=== PATIENT | male | born 1960 | race Caucasian/White ===

== ENCOUNTER 2016-04-06 08:33 | Day surgery (SDC) | payer OTHER, MEDICAID ==
[2016-04-06] MEDS ORDERED: LIDOCAINE 1% 5 ML SDV ID PRN (09:10)
[2016-04-06] MEDS ORDERED: LR 1,000 ML IV ONE (09:10)
--- NOTE | 2016-04-06 13:06 | GPN ---
[f rep st] PROCEDURE NOTE PREPROCEDURE DIAGNOSIS: Screening colonoscopy, prior colonoscopy with poor preparation. POSTPROCEDURE DIAGNOSIS: Again, poor preparation colonoscopy. PROCEDURE: Colonoscopy. MEDICATIONS: Monitored anesthesia care. INDICATIONS: The patient is a 55-year-old gentleman, who needs a screening colonoscopy. His prior s creening colonoscopy was inadequate secondary to poor preparation. He is here today for repeat colon oscopy. He initially stated he did not drink the prep however, later stated that he did. We agreed to proceed with colonoscopy. The risks and the benefits of the procedure were discussed with the pat ient, and consent was obtained. The risks include, but are not limited to, bleeding, perforation, mi ssed lesions, and sedation. The patient is ASA class 3. DESCRIPTION OF PROCEDURE: The adult colonoscope was advanced into the cecum. There was stool throug hout the colon prohibiting visualization. Approximately 50% of the colon was not able to be visualiz ed secondary to liquid and solid stool. There were no obvious colon masses. Polyps less than 2 cm i n size could have been missed. Retroflexed views in the rectum were normal. IMPRESSION: Colonoscopy to the cecum however, visualization was obscured secondary to stool. RECOMMENDATIONS: 1. Discharge home with escort. 2. Advance diet as tolerated. 3. The patient to discuss repeat colonoscopy with his primary care doctor however, this is his secon d colonoscopy with poor visualization. I would not schedule a repeat colonoscopy until he has this d iscussion. This exam again, does not count for a screening exam secondary to poor preparation. Thank you for allowing me to participate in the care of your patient. Please do not hesitate to call with questions. /[id number]/MODL
== END 2016-04-06 13:00 | disposition home or self-care (01) ==
LOC: FSGY 08:33
PROVIDERS: ATTEND Internal Medicine Gastroenterology
PROC: 0DJD8ZZ Inspection of Lower Intestinal Tract, Via Natural or Artificial Opening Endoscopic (ICD-10-PCS; principal; 2016-04-06 10:15)
DX: Z12.11 Encounter for screening for malignant neoplasm of colon (principal); I10 Essential (primary) hypertension; G89.4 Chronic pain syndrome; F32.9 Major depressive disorder, single episode, unspecified; G35 Multiple sclerosis

== ENCOUNTER → 2016-09-07 | Outpatient (CLI) | payer OTHER, MEDICAID ==
--- NOTE | 2016-09-07 11:06 | NOWCEV ---
[facility] OUTPATIENT REHABILITATION SERVICES WHEELCHAIR CLINIC EVALUATION AND LETTER OF JUSTIFICATION Patient Name: ADALBERTO FAY Physician: Maldonado Manning MD Eval Date: 09/07/16 Therapist: Angela Salazar PT,MSPT Date of : 1960 MR#: [id number] Contact: Adalberto Fay Subscriber: ADALBERTO FAY Primary Ins: MEDICARE OUTPATIENT Subscriber #: [id number] EVALUATION FINDINGS Medical history - Adalberto is a 55y/o male who was dx with multiple sclerosis (MS ) in 1995. Since that time he has had a progressive decline gait and function. He also reports a significant h/o LBP, B knee pain and R shoulder pain resulting from a fx earlier in life. He rates his pain as a 8-9/10 when standing or laying flat. Adalberto's current PWC is 12 years old and is no longer meeting his needs. He was referred to this wheelchair clinic by his doctor to have recommendations made for the most medically appropriate PWC to allow for consistent, safe, independent access to MRADLs within the home. Functional Mobility - Adalberto uses his current PWC independently for all household mobility. To transfer, Adalberto utilizes a stand step strategy, with significant UE support from his w/c arm rests. He has a crouched posture with significant knee flexion throughout the transition. To transition from sitting to supine, Adalberto requires increased time, and has pain which he rates as an 8-9/ 10 in his LB when he transitions to supine. He also requires increased time for supine to sit transitions due to pain in his back. He reports he is inconsistently able to walk short distances in his home, but is limited by fatigue from his MS, impaired balance as well as significant pain in his LB. When he does ambulate, he utilizes a crouched gait pattern with significant flexion at B knees, hips, and trunk and has a wide JAZLYN. He demonstrates poor clearance of his L foot, and spasticity in his L foot when it is on the ground. He requires CTG to occasional min A to maintain balance. This date he utilizes the wall rail to ambulate, but at home he report using a cane and holds onto stable surfaces around his home. He fatigued following walking a 15 ' distance in the clinic. He reports at home, he has days where it is difficult for him to stand, transfer or even weight shift in his PWC due to fatigue from his MS. Head/Trunk control - Adalberto is able to sit unsupported but demonstrates a posterior loss of balance with any challenges, and he has difficulty maintaining his feet on the floor. To maintain standing he requires a wide JAZLYN and flexed posture as well as UE support from a stable surface. He cannot take on any challenges in standing. Motor involvement - Adalberto's motor function is greatly impacted by his MS. He has increased flexor tone in B LEs which limits his ability to lay flat and to stand without significant flexion at B hips and knees. His spasticity increases with function and exertion, such as when transferring or attempting to ambulate, in turn limiting his ability to coordinate movement patterns. Passively he can get to -5 knee extension B, but this takes increased time to achieve. He has 0degress DF B. Shoulder flexion and abduction is limited to 100deg on the R and 90deg on the L. Pt reports strength and energy to perform functional tasks varies greatly depending on his level of fatigue and exacerbation of his MS symptoms. On this date, when Adalberto is not having an exacerbation, MMT is as follows: DF B: 4-/5, knee extension B: 4+/5, hip flexion B: 4/5, hip extension B: 3-/5, shoulder abduction B: 4/5, shoulder flexion: 4-/5. Posture - Adalberto sits with a significant posterior pelvic tilt and thoracic kyphosis. His sacrum is about 5" from his chair back. He has a severely forward head and he holds his head tilted to the R. His R shoulder is higher than his L, and he has a R thoracic convexity. B LEs are abducted, and he has difficulty maintaining his feet on his foot plate Skin Sensation - Adalberto has 2 active pressure ulcers in his coccygeal area, which is he currently seeing a wound care nurse to help manage. He does report intermittent episodes of incontinence. Adalberto also has pitting edema in his L ankle which he reports becomes worse as his feet remain in a dependent position. He has a wound on his L second toe, which he reports occurred when he was crawling in his home. Endurance - Adalberto has very limited endurance. He report that when his MS is flared, he is unable to consistently weight shift for pressure relief in his PWC due to fatigue. At these times, he is fully reliant on his PWC to access all areas of his home including the bathroom, kitchen and bedroom. When he is not experiencing and an exacerbation of symptoms, Adalberto report that he can stand for a few minutes with UE support, and ambulate short household distances with a cane. He reports that he has not been able to ambulate in the home for the past month or more due to fatigue and fear of falling. ADLs - Adalberto reports that he is able to perform toileting and shower with modified independence with use of a shower chair and adaptive strategies. He relies on a caregiver for meal prep and cleaning. Cognitive/Social - Adalberto lives alone in a wheelchair accessible home. 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 Adalberto has a caregiver that assists him with meal prep and paying bills 4 days a week. He uses [employer] transit to access medical appointments in the community in his PWC. Current wheelchair - Adalberto's current PWC is a [employer]inderBox 2HD and is 12 years old. He reports that the batteries no longer hold a charge, and this model is no longer being made, so they cannot be replaced. The seat cushion on the chair is ripped and with seat does not provide Adalberto with the postural support or pressure relief he needs, and is causing pressure ulcers. MEDICAL and FUNCTIONAL NEED/OBJECTIVES * To replace Adalberto's current PWC and seating system to allow for safe independent access to perform MRADLs in his home and to allow for appropriate pressure relief and postural support to allow for healing of his current pressure ulcers. PRIMARY FUNCTIONAL LIMITATION (G Code) * Mobility CURRENT STATUS OF PRIMARY FUNCTIONAL LIMITATION (Severity Modifier) * At least 60 percent but less than 80 percent impaired, limited or restricted ( CL) * GOAL STATUS OF PRIMARY FUNCTIONAL LIMITATION (Severity Modifier) * At least 60 percent but less than 80 percent impaired, limited or restricted ( CL) DISCHARGE STATUS OF PRIMARY FUNCTIONAL LIMITATION (Severity Modifier) * At least 60 percent but less than 80 percent impaired, limited or restricted ( CL) EQUIPMENT RECOMMENDATIONS AND JUSTIFICATIONS The following recommendations are believed to be the most cost effective way to meet the patients medical and functional needs. * Group 3 power base: Needed to replace Adalberto's current PWC which is 12 y/o, deteriorating and no longer meeting his needs. Adalberto cannot ambulate functionally, even with an AD to safely access MRADLs in his home. He cannot utilize even a light weight MWC due to the severe fatigue Adalberto experiences from his MS. Exerting himself to self propel a MWC could cause exacerbation of his MS symptoms and limit his access to MRADLs in the home. Adalberto cannot utilize a scooter, because it cannot accommodate the necessary seating system that Adalberto requires to allow for healing of his pressure ulcers. A scooter would not provide the postural support and control needed when Adalberto is experiencing MS fatigue. A custom PWC will provide Adalberto with safe and consistent access to MRADLs within his home, even when experiencing a fatigue or exacerbation of his MS symptoms. Adalberto is able to safely transfer to/from a PWC utilizing adaptive strategies. * Power [id number]: Needed to allow Adalberto to perform pressure relief at regular intervals throughout the day to allow for healing of his current pressure ulcers. This is necessary as Adalberto is unable to appropriately weight shift to perform pressure relief when he is fatigued from an MS exacerbation. Additionally, the [id number] will allow Adalberto to conserve energy throughout the day by taking breaks in a reclined position. This will allow for improved safety with transfers and performance of ADLs later in the day. * Swing away joystick: Needed so that the joystick can be moved out of the way so it does not interfere with transfers. Additionally, it will allow Adalberto to pull his chair more closely up to surfaces to complete functional tasks with greater independence when he is experiencing increased fatigue from his MS. * Head rest with removable mount: Needed to support Adalberto's head when he is utilizing the tilt function on his chair, as well as to help his conserve energy when experiencing an exacerbation of his MS. The removable mount is necessary so the head rest can be removed for assisted ADLs and self care tasks. * Height adjustable arm rests: The elevated height of the arm rest is needed to allow Adalberto to push up on to safely perform transfers. * Skin protection positioning cushion: Needed to provide Adalberto with appropriate pressure relief and distribution to allow for healing of his current coccygeal pressure ulcers. Additionally, a customs cushion will help position Adalberto's pelvis to prevent his from sliding forward in his chair which will decrease sheering forces and improve seated posture to allow for improved performance of ADLs from a w/c level. An off the shelf cushion is not appropriate as it will not provide Adalberto with adequate support to prevent him from sliding forward and will create increased sheering forces at his sacrum, which will prevent healing of current ulcers and not allow for skin health in the future. * Posterior positioning backrest: Needed to maximize Adalberto's posture in order to improve sitting tolerance and function. Additionally it will work in conjunction with Adalberto's seat cushion to enhance pressure distribution to promote wound healing and skin health. * Transit tie downs: Needed to secure Adalberto's chair when utilizing [employer] to attend medical appointments in the community. * Batteries: Needed to provide the chair with power to allow Adalberto to drive and utilize the electronic seat functions. These recommendations are based on the likelihood that ADALBERTO Irizarry will require the use of a wheelchair for mobility for the rest of his life. If you have any questions or concerns regarding the stated recommendations, please feel free to contact the therapist at . Thank you for your cooperation in obtaining the necessary equipment for this patient. MONALISA Johnson
== END ==
PROVIDERS: ATTEND Family Medicine
DX: Z46.89 Encounter for fitting and adjustment of other specified devices (principal); G35 Multiple sclerosis
CPT/HCPCS: 97162; G8978; G8979; G8980

== ENCOUNTER 2017-08-18 10:52 | Inpatient (IN) | payer OTHER, MEDICAID ==
--- NOTE | 2017-08-18 11:08 | EDPHY ---
H & P Time Seen by Provider: 08/18/17 11:07 HPI/ROS: CHIEF COMPLAINT: Fever and weakness HISTORY OF PRESENT ILLNESS: At least 48 hr of symptoms, has multiple sclerosis , arrives with fever chills and feeling terrible. Associated symptoms include cough but not short of breath, and decreased urination. No dysuria or discoloration or foul smell. No skin rashes. Symptoms severe and not better or worse with anything. REVIEW OF SYSTEMS: Eye: no change in vision ENT: no sore throat Cardiac: no chest pain or syncope Pulmonary: HPI Abdomen: no vomiting, diarrhea, abdominal pain Musculoskeletal: no back pain Skin: no rash Neuro: no headache Constitutional: HPI : no urinary symptoms A comprehensive 10 point review of systems is otherwise negative aside from elements mentioned in the history of present illness. PAST MEDICAL HISTORY: Multiple sclerosis, previous right shoulder surgery. Social history: Brought here with a friend, nonsmoker General Appearance: Alert and conversant, cooperative. Eyes: No scleral icterus. ENT, Mouth: Dry mucous membranes. Respiratory: Decreased breath sounds at the right base. O2 sat 79% in the room. Cardiovascular: Regular rate and rhythm. Gastrointestinal: Abdomen is soft and non tender. Neurological: Alert, face symmetric, normal motor and sensory in extremities. Skin: Warm and dry, no rashes. Specifically does not have evidence of cellulitis on his feet. Musculoskeletal: No peripheral edema. Psychiatric: Not agitated. Emergency Department course/MDM: Lactate screening, chest x-ray and urinalysis, blood cultures and IV fluids, admission for IV antibiotics. 1157: Bilateral infiltrates on long, with cough and hypoxemia and fever will treat for presumptive pneumonia with Levaquin 750 mg IV. Lactate is negative for severe sepsis. 1305; still unable to urinate, refuses catheter. Continued IV fluid hydration, will not delay antibiotics further. Levaquin 750 mg IV and inpatient. Smoking Status: Former smoker Constitutional: Initial Vital Signs Temperature (C) 38 C 08/18/17 10:55 Heart Rate 113 H 08/18/17 10:55 Respiratory Rate 16 08/18/17 10:55 Blood Pressure 133/84 H 08/18/17 10:55 O2 Sat (%) 94 08/18/17 10:55 O2 Delivery Mode Nasal Cannula O2 (L/minute) 3 Allergies/Adverse Reactions: No Known Allergies Allergy (Verified 03/09/16 13:52) Home Medications: Medication Instructions Recorded Albuterol [Proventil Inhaler HFA 1 puffs IH BID 08/18/17 (*)] Amitriptyline HCl [Elavil 10 mg 10 mg PO HS 08/18/17 (*)] Amoxicillin Trihydrate 500 mg PO Q8H PRN 08/18/17 [Amoxicillin] Cyclobenzaprine [Flexeril 10 MG 10 mg PO BID 08/18/17 (*)] Dalfampridine [Ampyra] 10 mg PO BID 08/18/17 Diazepam [Valium 10 MG (*)] 10 mg PO BID 08/18/17 Folic Acid [Folic Acid 1 MG (*)] 1 mg PO DAILY 08/18/17 Gabapentin [Neurontin 400 MG (*)] 800 mg PO TID 08/18/17 Hydrochlorothiazide [HCTZ (*)] 50 mg PO DAILY PRN 08/18/17 Ibuprofen [Motrin (*)] 400 mg PO Q4HRS PRN 08/18/17 Interferon Beta-1A [Avonex] 30 mcg IM WE 08/18/17 Linaclotide [Linzess] 145 mcg PO DAILY PRN 08/18/17 Metoprolol Tartrate [Lopressor 50 75 mg PO BID 08/18/17 mg (*)] OLANZapine [Zyprexa] 15 mg PO HS 08/18/17 Oxybutynin Chloride 5 mg PO HS 08/18/17 Pantoprazole Sodium [Protonix 40mg 40 mg PO DAILY 08/18/17 (*)] Polyethylene Glycol 3350 [Miralax 17 gm PO DAILY PRN 08/18/17 17 gm (*)] Tamsulosin HCl [Flomax 0.4 MG (*)] 0.4 mg PO HS 08/18/17 Testosterone IM [Testosterone 300 mg IM Q30D 08/18/17 100mg/ml IM inj (*)] ZOLPIDEM TARTRATE [Ambien CR 12.5 12.5 mg PO HS 08/18/17 mg] buPROPion XL [Wellbutrin Xl] 150 mg PO BID 08/18/17 busPIRone [Buspar (*)] 30 mg PO BID 08/18/17 oxyCODONE HCL [Oxycontin] 60 mg PO BID 08/18/17 tiZANidine HCL [Zanaflex] 4 mg PO TID PRN 08/18/17 Medical Decision Making - Diagnostics Imaging Results: Imaging Impressions Chest X-Ray 08/18/17 11:19 Impression: Mild diffuse bilateral pulmonary vascular prominence, without acute infiltrate or pleural effusion.. Imaging: I viewed and interpreted images myself Differential Diagnosis: Differential for fever considered including but not limited to pneumonia, UTI, sepsis, meningitis, ENT infection Consult/Admit Bed Type: [facility] - [facility] Points Laboratory Results: Laboratory Results 08/18/17 11:15 08/18/17 11:15 08/18/17 08/18/17 08/18/17 11:16 11:15 11:15 WBC RBC Hgb Hct MCV MCH MCHC RDW Plt Count MPV Neut % (Auto) Lymph % (Auto) [place] % (Auto) Eos % (Auto) Baso % (Auto) Nucleat RBC Rel Count Absolute Neuts (auto) Absolute Lymphs (auto) Absolute Monos (auto) Absolute Eos (auto) Absolute Basos (auto) Absolute Nucleated RBC Immature Gran % Immature Gran # PT 13.4 SEC SEC (12.0-15.0) INR 1.00 (0.83-1.16) APTT 30.6 SEC SEC (23.0-38.0) POC Blood Source VENOUS Patient Temperature 38.0 DEGREES DEGREES POC VBG pH 7.41 (7.31-7.42) POC VBG pCO2 51 mmHg H mmHg (40-44) POC VBG pO2 TNP POC VBG HCO3 32 mEq/L H mEq/L (22-26) POC VBG Total CO2 34 mEq/L H mEq/L (21-27) POC VBG Base Excess 8.0 mEq/L H mEq/L (-2.5-2.5) VBG Lactic Acid POC Mix VBG O2 Sat TNP Sodium 144 mEq/L mEq/L (135-145) Potassium 3.4 mEq/L mEq/L (3.3-5.0) Chloride 97 mEq/L mEq/L (97-110) Carbon Dioxide 33 mEq/l H mEq/l (22-31) Anion Gap 14 mEq/L mEq/L (8-16) BUN 28 mg/dL H mg/dL (7-23) Creatinine 1.6 mg/dL H mg/dL (0.7-1.3) Estimated GFR 45 Glucose 96 mg/dL mg/dL (70-100) POC Lactic Acid Nelson 1.3 mmol/L mmol/L (0.7-2.1) Calcium 10.4 mg/dL mg/dL (8.5-10.4) Total Bilirubin 0.6 mg/dL mg/dL (0.1-1.4) 08/18/17 08/18/17 11:15 11:15 WBC 10.17 10^3/uL H 10^3/uL (3.80-9.50) RBC 6.34 10^6/uL 10^6/uL (4.40-6.38) Hgb 14.3 g/dL g/dL (13.7-17.5) Hct 48.1 % % (40.0-51.0) MCV 75.9 fL L fL (81.5-99.8) MCH 22.6 pg L pg (27.9-34.1) MCHC 29.7 g/dL L g/dL (32.4-36.7) RDW 19.9 % H % (11.5-15.2) Plt Count 387 10^3/uL 10^3/uL (150-400) MPV 10.1 fL fL (8.7-11.7) Neut % (Auto) 71.9 % % (39.3-74.2) Lymph % (Auto) 13.8 % L % (15.0-45.0) [place] % (Auto) 10.6 % % (4.5-13.0) Eos % (Auto) 2.6 % % (0.6-7.6) Baso % (Auto) 0.6 % % (0.3-1.7) Nucleat RBC Rel Count 0.2 % % (0.0-0.2) Absolute Neuts (auto) 7.32 10^3/uL H 10^3/uL (1.70-6.50) Absolute Lymphs (auto) 1.40 10^3/uL 10^3/uL (1.00-3.00) Absolute Monos (auto) 1.08 10^3/uL H 10^3/uL (0.30-0.80) Absolute Eos (auto) 0.26 10^3/uL 10^3/uL (0.03-0.40) Absolute Basos (auto) 0.06 10^3/uL 10^3/uL (0.02-0.10) Absolute Nucleated RBC 0.02 10^3/uL H 10^3/uL (0-0.01) Immature Gran % 0.5 % % (0.0-1.1) Immature Gran # 0.05 10^3/uL 10^3/uL (0.00-0.10) PT INR APTT POC Blood Source Patient Temperature POC VBG pH POC VBG pCO2 POC VBG pO2 POC VBG HCO3 POC VBG Total CO2 POC VBG Base Excess VBG Lactic Acid 1.6 mmol/L mmol/L (0.7-2.1) POC Mix VBG O2 Sat Sodium Potassium Chloride Carbon Dioxide Anion Gap BUN Creatinine Estimated GFR Glucose POC Lactic Acid Nelson Calcium Total Bilirubin Microbiology Results: MICROBIOLOGY 08/18/17 11:58 Nasal, Sinus - Swab Respiratory Panel (PCR) - Final No Organism Detected Medications Given: Discontinued Medications Sodium Chloride (Ns) 1,000 mls @ 0 mls/hr IV EDNOW ONE; Wide Open PRN Reason: Protocol Stop: 08/18/17 11:20 Last Admin: 08/18/17 11:20 Dose: 1,000 mls Sodium Chloride (Ns) 1,000 mls @ 0 mls/hr IV EDNOW ONE; Wide Open PRN Reason: Protocol Stop: 08/18/17 11:57 Last Admin: 08/18/17 13:00 Dose: 1,000 mls Levofloxacin/Dextrose (Levaquin 750 Mg (Premix)) 150 mls @ 100 mls/hr IV EDNOW ONE PRN Reason: Protocol Stop: 08/18/17 13:25 Last Admin: 08/18/17 13:07 Dose: 150 mls Point of Care Test Results: Blood Gas/Lactic Acid-Arterial 08/18/17 11:16 POC Blood Source VENOUS Blood Gas/Lactic Acid-Venous 08/18/17 11:16 POC VBG pH 7.41 (7.31-7.42) POC VBG pCO2 51 mmHg H mmHg (40-44) POC VBG pO2 TNP POC VBG HCO3 32 mEq/L H mEq/L (22-26) POC VBG Total CO2 34 mEq/L H mEq/L (21-27) POC VBG Base Excess 8.0 mEq/L H mEq/L (-2.5-2.5) POC Mix VBG O2 Sat TNP POC Lactic Acid Nelson 1.3 mmol/L mmol/L (0.7-2.1) Departure - Departure Disposition: [facility] Inpatient Acute Clinical Impression: Sepsis Qualifiers: Sepsis type: sepsis due to unspecified organism Qualified Code(s): A41.9 - Sepsis, unspecified organism Pneumonia Qualifiers: Pneumonia type: due to unspecified organism Laterality: bilateral Lung location : unspecified part of lung Qualified Code(s): J18.9 - Pneumonia, unspecified organism Condition: Fair
[2017-08-18] MEDS ORDERED: NS 1,000 ML IV ONE ×2 (11:19→11:56)
[2017-08-18 11:34] LABS: PLATELET COUNT 387 10^3/uL (150-400)
[2017-08-18 11:52] LABS: PROTIME(PATIENT) 13.4 SEC (12.0-15.0)
[2017-08-18] MEDS ORDERED: POLYETHYLENE GLYCOL 3350 17 GM PKT PO PRN (17:16)
[2017-08-18] MEDS ORDERED: PROMETHAZINE HCL 25 MG/ML INJ IVP PRN (17:21)
[2017-08-18] MEDS ORDERED: ONDANSETRON 4 MG/2 ML VIAL IVP PRN (17:21)
[2017-08-18] MEDS ORDERED: NS 1,000 ML IV SCH (17:30)
--- NOTE | 2017-08-18 18:11 | GHP ---
[f rep st] HISTORY AND PHYSICAL DATE OF ADMISSION: 08/18/2017 CHIEF COMPLAINT: Fever. HISTORY OF PRESENT ILLNESS: The patient is a 56-year-old male, who was sent to the emergency room by his nurse when she found a fever of 102. Blood pressure was also read by her to be low. The patien t has minimal symptoms. He denies any cough. He denies any chest pain. Denies any shortness of amilcar ath. Has noticed increased lower extremity swelling for the last 2 weeks which he has never had in t he past. He does state multiple members of his close family, however, have all recently suffered fro m a similar pneumonia. PAST MEDICAL HISTORY: 1. Multiple sclerosis. 2. Hypertension. 3. Chronic pain with continuous narcotic dependency. 4. Bipolar disorder. 5. Obesity, BMI 33. MEDICATIONS: Please see computer record for full detailed list. ALLERGIES: No known drug allergies. SOCIAL HISTORY: He was a heavy smoker in the past but quit a few years ago. Also a heavy drinker of alcohol in the past, but he has also quit that. He uses a walker. He lives alone. REVIEW OF SYSTEMS: Complete review of systems obtained. Review of systems negative for constitution al, HEENT, GI, pulmonary, vascular, , hematologic, endocrine, psych except for positives as in HPI. FAMILY HISTORY: Reviewed and noncontributory to presenting complaint. PHYSICAL EXAMINATION: GENERAL: Well-developed, well-nourished male, in no acute distress. VITAL SIG NS: Temperature is 38.0, pulse 113, blood pressure 121/73, sat 90% on 3 L. EYES: Normal conjunctiva . Pupils react to light. ENT: Normal ears, nose. Hearing intact. Normal mouth and teeth. Oropha rynx moist. NECK: Trachea midline. No thyromegaly. CHEST: Normal except for lungs, some faint bi lateral rales. No wheeze or rhonchi. CARDIOVASCULAR: Regular rate and rhythm. No murmur. 2+ lowe r extremity edema. ABDOMEN: Soft, nontender. No hepatosplenomegaly. SKIN: Warm, dry, intact with out rash. MUSCULOSKELETAL: No cyanosis or clubbing. Strength is decreased throughout. He had trou ble sitting, from a lying position to sitting at the side of the bed. It took him quite a while and required assistance. NEURO: Cranial nerves grossly intact. PSYCH: Alert and oriented x3. Normal affect. Normal judgment and insight. Normal memory. He does have slurred speech which I think is b aseline from his MS. LABORATORY VALUES: White count 10.17, hematocrit 48.1, platelets 387. Sodium 144, potassium 3.4, ch loride 97, bicarb 33, BUN 28, creatinine 1.6, glucose 96, lactate 1.3. Urinalysis is negative. Chest x-ray reviewed by me. My personal interpretation is bilateral infiltrates. MEDICAL RECORDS REVIEW: Previous medical records were reviewed. He has had minimal previous hospita lizations here, was last hospitalized here 2010. That admission was due to UTI. ASSESSMENT/PLAN: 1. Suspected pneumonia with sepsis as he does present with fever, leukocytosis, and tachycardia. Al so in the differential is congestive heart failure based on bilateral infiltrates on chest x-ray and pulmonary embolus, given history of immobility and new onset lower extremity edema. For now, will pr oceed with antibiotics and continue intravenous Levaquin as started in the emergency room. Will chec k a respiratory PCR. 2. Lower extremity edema. This has been new for the last 2 weeks. Will check ultrasound to rule ou t deep vein thrombosis and an echocardiogram. 3. Acute renal failure secondary to dehydration. Will hold his hydrochlorothiazide and check a blad horacio scan for retention. 4. Multiple sclerosis. This is quite debilitating and he seems compromised at baseline. Will order Physical Therapy and Occupational Therapy. Will consult Speech Therapy to rule out aspiration pneum onia. Continue Ampyra. 5. Chronic pain with continuous narcotic dependency. Continue OxyContin. 6. Bipolar. Continue Zyprexa. CODE STATUS: Full. ADMISSION STATUS: Will start with observation, although I think he is high risk for needing a longer stay. DVT PROPHYLAXIS: He is high risk. Will place him on subcu Lovenox. /[id number]/MODL
[2017-08-18] MEDS: NS 1,000 ML IV SCH (19:00)
[2017-08-18] MEDS ORDERED: DIAZEPAM 10 MG TAB PO SCH (21:00)
[2017-08-18] MEDS: ALBUTEROL 60 PUFFS/8 GM MDI IH SCH (21:37)
[2017-08-18] MEDS: buPROPion XL 150 MG TAB PO SCH (22:08)
[2017-08-18] MEDS: GABAPENTIN 400 MG CAP PO SCH (22:08)
[2017-08-18] MEDS: METOPROLOL TARTRATE 50 MG TAB PO SCH (22:08)
[2017-08-18] MEDS: oxyCODONE CR 30 MG TAB PO SCH (22:11)
[2017-08-18] MEDS: ZOLPIDEM TARTRATE 5 MG TAB PO SCH (22:11)
[2017-08-18] MEDS: TAMSULOSIN HCL 0.4 MG CAP PO SCH (22:11)
[2017-08-18] MEDS: busPIRone 15 MG TAB PO SCH (22:12)
[2017-08-18] MEDS: DIAZEPAM 5 MG TAB PO SCH (22:12)
[2017-08-18] MEDS: CYCLOBENZAPRINE 10 MG TAB PO SCH (22:12)
[2017-08-18] MEDS: OLANZapine 5 MG TAB PO SCH (22:12)
[2017-08-18] MEDS: AMITRIPTYLINE HCL 10 MG TAB PO SCH (22:13)
[2017-08-18] MEDS: OXYBUTYNIN CHLORIDE 5 MG TAB PO SCH (22:13)
[2017-08-18] MEDS: NON-FORMULARY NEW DRUG (Dalfampridine [Ampyra] 10 MG) PO SCH (22:57)
[2017-08-19] MEDS: NS 1,000 ML IV SCH (01:01)
[2017-08-19 05:41] LABS: PLATELET COUNT 299 10^3/uL (150-400)
[2017-08-19] MEDS: ALBUTEROL 60 PUFFS/8 GM MDI IH SCH ×2 (08:30→20:41)
--- NOTE | 2017-08-19 08:48 | CPEKG ---
Heart Rate: 72 RR Interval: 833 P-R Interval: 208 QRSD Interval: 84 QT Interval: 380 QTC Interval: 416 P [place]: 43 QRS [place]: 18 T Wave [place]: 21 EKG Severity - NORMAL ECG - EKG Impression: SINUS RHYTHM Electronically Signed By: Finesse Jose 22-Aug-2017 02:37:05
[2017-08-19] MEDS: oxyCODONE CR 30 MG TAB PO SCH ×2 (09:35→20:52)
[2017-08-19] MEDS ORDERED: FUROSEMIDE 40 MG/4 ML VIAL IVP ONE (09:41)
--- NOTE | 2017-08-19 09:49 | ASMTCMCOM ---
CM Note CM Note Notes: Chart reviewed for discharge planning purposes. 56 year old male admitted via ED for c/o weakness and swelling in lower extremities. He is follow by YUMIKO Burton who in fact left a message for CM to call [phone]. I have left a message for them to call me. He reported lives alone and uses a walker. PT and OT evaluations pending. CM to follow. Plan: TBD Date Signed: 08/19/2017 09:48 AM Electronically Signed By:Julisa Magallanes RN
[2017-08-19] MEDS: levOFLOXACIN 500 MG/DEXTROSE 100 ML IV SCH (09:58)
[2017-08-19] MEDS ORDERED: NALOXONE HCL 0.4 MG/ML INJ ONE (10:07)
[2017-08-19] MEDS ORDERED: NALOXONE HCL 0.4 MG/ML INJ IVP ONE (10:10)
--- NOTE | 2017-08-19 10:13 | ASMTCMCOM ---
CM Note CM Note Notes: Spoke with Rut Chapman who reveals the patient has wounds on his knees due to his severity of his MS and that he is crawling on the floors of his home as his access to rooms via wheelchair is limited by the width of the doorways. He currently has [facility] and has a caregiver provided 3 times weekly for 3 hours at a time for errands, cleaning and shopping, He has had a change in status and is being transferred to a higher level of care within the hospital. CM will follow to ascertain his needs and assist with dc planning. Plan: TBD Date Signed: 08/19/2017 10:12 AM Electronically Signed By:Julisa Magallanes RN
--- NOTE | 2017-08-19 10:14 | ECHO ---
[email or web address] [address] [address] Main: [phone] Fax: Transthoracic Echocardiogram Name: ADALBERTO FAY MR#: [id number] Study Date: 08/19/2017 Study Time: 07:49 AM Date of : 1960 Age: 56 year(s) Height: 188 cm (74 in.) Weight: 117.94 kg (260 lb.) BSA: 2.43 m2 Gender: Male Examination: Echo Indication: New LE Edema Image Quality: Adequate Contrast: Requested by: Jacqueline Salinas BP: 99 mmHg/61 mmHg Heart Rate: Rhythm: Indication: New LE Edema Procedure Staff Mobile Application Developer: Kina Marrero [facility] Reading Physician: Jose C Crow MD Requesting Provider: Conclusions: Normal size left ventricle. No LV hypertrophy. Normal global systolic LV function. The ejection fraction is visually estimated to be 55 %. No regional wall motion abnormality. Normal RV function. The mitral valve is normal in appearance and function. Mild mitral valve regurgitation is present. No mitral stenosis is present. There is no significant aortic valve regurgitation. No aortic valve stenosis is present. The pulmonary artery pressure is normal. No previous Measurements: Chambers Valvular Assessment AV/MV Valvular Assessment TV/PV Normal Normal Normal Name Value Range Name Value Range Name Value Range Ao Polina (2D): 3.5 cm (1.4 cm-2.6 AV Vmax: 1.60 m/s (1 m/s-1.7 TR Vmax: 2.35 mm/s ( - ) cm) m/s) TR PGmax: 22 mmHg ( - ) IVSd (2D): 1.1 cm (0.6 cm-1.1 AV maxP mmHg ( - ) syst. PAP: 27 mmHg ( - ) cm) AV meanP mmHg ( - ) PV Vmax: 0.92 m/s (0.6 m/s-0.9 LVDd (2D): 4.6 cm (4.2 cm-5.9 ALYCIA (VTI): 3.3 cm ( - ) m/s) cm) MV E Vmax: 0.76 m/s ( - ) PV PGmax: 3 mmHg ( - ) LVDs (2D): 3.0 cm (2.1 cm-4 MV A Vmax: 0.63 m/s ( - ) cm) MV E/A: 1.21 ( - ) LVPWd (2D): 1.0 cm (0.6 cm-1 cm) MV PHT: 0.082 s ( - ) LVOTd 2.5 cm 2.5 cm mm MVA (PHT): 2.7 s ( - ) LVEF (BP): 57 % (>=55 %) Patient: ADALBERTO FAY Study Date: 08/19/2017 Page 1 of 2 07:49 AM Visual EF: 55 % RVDd(2D): 3.7 cm (1.9 cm-3.8 cmmm) Continued Measurements: Chambers Valvular Assessment AV/MV Valvular Assessment TV/PV Name Value Name Value Name Value LADs: 4.1 cm MV DecTime: 296 m/s CVP (est.): 5 mmHg LADs Lon.4 cm MV E' Septal: 0.08 m/s LA Area: 19.0 cm2 MV E/E' Septal: 9.20 LA Volume: 62 ml MV E/E' Lateral: 5.80 LA Volume Index: 25.5 ml/m2 RA Area: 18.6 cm2 Findings: Left Ventricle: Normal size left ventricle. No LV hypertrophy. Normal global systolic LV function. The ejection fraction is visually estimated to be 55 %. No regional wall motion abnormality. Normal diastolic LV function. Right Ventricle: Normal size right ventricle. Normal RV function. Left Atrium: The left atrium is normal in size. Right Atrium: The right atrium is normal in size. Mitral Valve: The mitral valve is normal in appearance and function. Mild mitral valve regurgitation is present. No mitral stenosis is present. Aortic Valve: The aortic valve is normal in appearance and function. There is no significant aortic valve regurgitation. No aortic valve stenosis is present. Tricuspid Valve: The tricuspid valve is normal in appearance and function. Mild tricuspid regurgitation is present. The pulmonary artery pressure is normal. Right ventricular systolic pressure measures 27mmHg. Pulmonic Valve: The pulmonic valve is normal in appearance and function. There is no pulmonic regurgitation seen. Aorta: The aorta is normal. Normal size aortic root measuring 3.5 cm. Pericardium: No pericardial effusion. No pleural effusion. (No Signature Object) Patient: ADALBERTO FAY Study Date: 08/19/2017 Page 2 of 2 07:49 AM [id number]
[2017-08-19] MEDS ORDERED: IOPAMIDOL (ISOVUE 370) 100 ML BTL IV ONE ×2 (11:46→12:50)
[2017-08-19] MEDS: METOPROLOL TARTRATE 50 MG TAB PO SCH ×2 (13:18→20:50)
[2017-08-19] MEDS: PANTOPRAZOLE SODIUM 40 MG TAB PO SCH (13:18)
[2017-08-19] MEDS: ENOXAPARIN 40 MG/0.4 ML SYR SC SCH (13:20)
[2017-08-19] MEDS: CYCLOBENZAPRINE 10 MG TAB PO SCH ×2 (13:20→20:50)
[2017-08-19] MEDS: DIAZEPAM 5 MG TAB PO SCH ×2 (13:21→20:50)
[2017-08-19] MEDS: GABAPENTIN 400 MG CAP PO SCH ×3 (13:25→20:52)
[2017-08-19] MEDS: buPROPion XL 150 MG TAB PO SCH ×2 (13:27→20:52)
[2017-08-19] MEDS: ACETAMINOPHEN 325 MG TAB PO PRN ×2 (13:27→23:13)
[2017-08-19] MEDS: FOLIC ACID 1 MG TAB PO SCH (13:27)
[2017-08-19] MEDS: NON-FORMULARY NEW DRUG (Dalfampridine [Ampyra] 10 MG) PO SCH ×2 (13:29→19:26)
[2017-08-19] MEDS: busPIRone 15 MG TAB PO SCH ×2 (13:29→20:49)
--- NOTE | 2017-08-19 15:27 | WOCRNPDOC ---
WOCRN Advanced Assessment Note - Skin Integrity Problem, Advanced Assess Left Posterior Medial Leg Unknown Dressing Type: Open to Air Exudate Amount: None Integumentary Issue Intervention: Mechanical Debridement Wound Bed Color: Yellow Wound Bed Constitution: Granulation Tissue (15%), Tunneling (at 11 oclock 0.5 cm ), Adhered Slough (85%) Wound Edges: Attached Site Measurement - Head-to-Toe Length X Width X Depth (cm): 1X2.5X0.5 Pressure Injury Stage: Stage 3, Legislators Related Pressure Injury (per patient report from [facility]) Pressure Injury Present on Admit: Yes Skin Integrity Problem Comment: Patient had little or no pain during the assessment and mechanical debridement. Loose slough mechanically debrided. Full thickness wound that per patient report is from coban being wrapped too tightly a couple of weeks ago. Will initiate enzymatic debridement and round again next week. Maria Ines AVELAR in room for care. [facility].
--- NOTE | 2017-08-19 15:51 | HOSPPROG ---
Hospitalist Progress Note Assessment/Plan: * Acute respiratory failure - acutely worsening O2 sats this am - transferred to step down * Pneumonia, probable aspiration - with sepsis -IV levaquin, add clindamycin * Continuous narcotic dependency -s/p Narcan - only mild improvement -continue home meds - hold if mental status poor * Advanced MS -Ampyra * Dysphagia -NPO per speech * ARF - resolved with IVF * Bipolar -zyprexa CC time - 50 minutes Subjective: Acutely worse sats this am - went from 4L to NRB - STAT team called. Mental status poor, got IV narcan with minimal response. Objective: Vital Signs Temp Pulse Resp BP Pulse Ox 37.3 C 86 15 109/75 93 08/19/17 15:07 08/19/17 15:07 08/19/17 15:07 08/19/17 15:07 08/19/17 15:07 08/18/17 08/19/17 08/20/17 05:59 05:59 05:59 Output Total 300 Balance -300 PT 13.4 SEC (12.0-15.0) 08/18/17 11:15 INR 1.00 (0.83-1.16) 08/18/17 11:15 CTA chest - PNA, no PE ECHO - normal CXR viewed, my personal interpretation is - possible pulmonary edema EKG viewed - NSR ABG - no CO2 retention Laboratory Tests 08/19/17 08/19/17 04:39 04:39 WBC 5.46 Creatinine 1.0 - Physical Exam Constitutional: no apparent distress, appears nourished, not in pain Cardiovascular: regular rate and rhythym, no murmur, rub, or gallop Respiratory: no respiratory distress, no rales or rhonchi, clear to auscultation Gastrointestinal: normoactive bowel sounds, soft, non-tender abdomen, no palpable masses Skin: no rashes or abrasions, no fluctuance, no induration Neurologic: weakness, No AAOx3 Psychiatric: encephalopathic, agitated, poor insight, poor judgement, poor memory, No interacting appropriately ICD10 Worksheet Patient Problems: Problems Problem Status Onset Pneumonia Acute Sepsis Acute
[2017-08-19] MEDS: COLLAGENASE 30 GM OINTMENT TP SCH (16:17)
[2017-08-19] MEDS: 1/2 NS 1,000 ML IV SCH (16:20)
[2017-08-19] MEDS: TAMSULOSIN HCL 0.4 MG CAP PO SCH (20:49)
[2017-08-19] MEDS: OLANZapine 5 MG TAB PO SCH (20:49)
[2017-08-19] MEDS: AMITRIPTYLINE HCL 10 MG TAB PO SCH (20:50)
[2017-08-19] MEDS: OXYBUTYNIN CHLORIDE 5 MG TAB PO SCH (20:50)
[2017-08-19] MEDS: ZOLPIDEM TARTRATE 5 MG TAB PO SCH (20:53)
[2017-08-19] MEDS: CLINDAMYCIN 600 MG/DEXTROSE 50 ML IV SCH (21:00)
[2017-08-20] MEDS: ACETAMINOPHEN 325 MG TAB PO PRN ×2 (04:08→18:14)
[2017-08-20] MEDS ORDERED: LIDOCAINE 2% JELLY 20 ML (UROJECT) ONE (05:11)
[2017-08-20] MEDS ORDERED: LIDOCAINE 2% JELLY 20 ML (UROJECT) UR ONE ×3 (05:30→14:45)
[2017-08-20] MEDS: CLINDAMYCIN 600 MG/DEXTROSE 50 ML IV SCH ×3 (06:13→21:59)
[2017-08-20] MEDS: 1/2 NS 1,000 ML IV SCH ×2 (06:13→14:46)
[2017-08-20] MEDS: ALBUTEROL 60 PUFFS/8 GM MDI IH SCH ×3 (08:37→21:25)
[2017-08-20] MEDS: FOLIC ACID 1 MG TAB PO SCH (09:45)
[2017-08-20] MEDS: GABAPENTIN 400 MG CAP PO SCH ×3 (09:45→20:50)
[2017-08-20] MEDS: METOPROLOL TARTRATE 50 MG TAB PO SCH ×2 (09:45→20:51)
[2017-08-20] MEDS: DIAZEPAM 5 MG TAB PO SCH ×2 (09:45→20:53)
[2017-08-20] MEDS: busPIRone 15 MG TAB PO SCH ×2 (09:45→20:52)
[2017-08-20] MEDS: oxyCODONE CR 30 MG TAB PO SCH ×3 (09:46→20:52)
[2017-08-20] MEDS: CYCLOBENZAPRINE 10 MG TAB PO SCH ×2 (09:46→20:52)
[2017-08-20] MEDS: PANTOPRAZOLE SODIUM 40 MG TAB PO SCH (09:46)
[2017-08-20] MEDS: ENOXAPARIN 40 MG/0.4 ML SYR SC SCH (09:46)
[2017-08-20] MEDS: buPROPion XL 150 MG TAB PO SCH ×2 (09:59→20:51)
[2017-08-20] MEDS: levOFLOXACIN 500 MG/DEXTROSE 100 ML IV SCH (09:59)
[2017-08-20] MEDS: COLLAGENASE 30 GM OINTMENT TP SCH (10:00)
[2017-08-20] MEDS: NON-FORMULARY NEW DRUG (Dalfampridine [Ampyra] 10 MG) PO SCH (10:34)
--- NOTE | 2017-08-20 13:40 | HOSPPROG ---
Hospitalist Progress Note Assessment/Plan: #Acute hypoxic resp failure: due to aspiration PNA -cont broad abx -no PE on CTA #Concern for CVA: per patient/family, speech slurred. 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 Speech better with dentures. Passed speech eval #MS: cont home meds #Chronic pain and opioid dependency #Dysphagia: cleared by speech #Sepsis: resolved. Due to PNA #Bipoloar d/o: zyprexa #Urinary retention: multifactorial with MS, opioids. Straight cath #Right buttock pressure injury: present at admit. Wound care #Diet: regular #DVT ppx: lovenox #Disp: stable for med floor. Cont inpt admission for IV abx, nebs Subjective: " i want to go home". Denies fevers Objective: Vital Signs Temp Pulse Resp BP Pulse Ox 36.6 C 83 15 100/58 L 92 08/20/17 07:54 08/20/17 09:45 08/20/17 08:38 08/20/17 09:45 08/20/17 08:38 08/19/17 08/20/17 08/21/17 05:59 05:59 05:59 Intake Total 1408 Output Total 2900 Balance -1492 PT 13.4 SEC (12.0-15.0) 08/18/17 11:15 INR 1.00 (0.83-1.16) 08/18/17 11:15 - Time Spent With Patient Time Spent with Patient: greater than 35 minutes Time Spent with Patient: Greater than 35 minutes spent on this patients care, greater than 50% of time spent counseling, educating, and coordinating care regarding the above mentioned plan. - Physical Exam Constitutional: no apparent distress Eyes: PERRL Ears, Nose, Mouth, Throat: moist mucous membranes Cardiovascular: regular rate and rhythym Respiratory: rhonchi Gastrointestinal: normoactive bowel sounds Genitourinary: no bladder fullness Skin: warm Musculoskeletal: generalized weakness Neurologic: AAOx3, CN II-XII Intact Psychiatric: flat affect ICD10 Worksheet Patient Problems: Problems Problem Status Onset Sepsis Acute Pneumonia Acute
--- NOTE | 2017-08-20 15:56 | PDMN ---
Medical Necessity Medical necessity: change to IP; los>2mn for acute resp failure, w/acutely worsening O2 sats with O2 needs increasing from 4L to NRB, PNA w/sepsis, likely aspiration, dysphagia; requires STAT team, transfer to ICU/SDU, continued IV abx, NPO; comorbid MS, bipolar; per order and progress note 08/19/17
[2017-08-20] MEDS ORDERED: LIDOCAINE 2% JELLY 20 ML (UROJECT) UR PRN (16:07)
[2017-08-20] MEDS: OXYBUTYNIN CHLORIDE 5 MG TAB PO SCH (20:51)
[2017-08-20] MEDS: TAMSULOSIN HCL 0.4 MG CAP PO SCH (20:52)
[2017-08-20] MEDS ORDERED: Dalfampridine [Ampyra] 10 MG PO SCH (21:00)
[2017-08-20] MEDS: OLANZapine 5 MG TAB PO SCH (21:59)
[2017-08-20] MEDS: AMITRIPTYLINE HCL 10 MG TAB PO SCH (21:59)
[2017-08-20] MEDS: ZOLPIDEM TARTRATE 5 MG TAB PO SCH (22:02)
[2017-08-21] MEDS: oxyCODONE CR 30 MG TAB PO SCH ×4 (05:37→21:20)
[2017-08-21] MEDS: CLINDAMYCIN 600 MG/DEXTROSE 50 ML IV SCH ×3 (05:37→21:17)
[2017-08-21] MEDS: 1/2 NS 1,000 ML IV SCH (05:38)
[2017-08-21] MEDS: GABAPENTIN 400 MG CAP PO SCH ×3 (08:50→21:21)
[2017-08-21] MEDS: DIAZEPAM 5 MG TAB PO SCH ×2 (08:51→21:20)
[2017-08-21] MEDS: buPROPion XL 150 MG TAB PO SCH ×2 (08:52→21:21)
[2017-08-21] MEDS: CYCLOBENZAPRINE 10 MG TAB PO SCH ×2 (08:52→21:21)
[2017-08-21] MEDS: METOPROLOL TARTRATE 50 MG TAB PO SCH ×2 (08:52→21:20)
[2017-08-21] MEDS: busPIRone 15 MG TAB PO SCH ×2 (08:54→21:21)
[2017-08-21] MEDS: FOLIC ACID 1 MG TAB PO SCH (08:55)
[2017-08-21] MEDS: ENOXAPARIN 40 MG/0.4 ML SYR SC SCH (08:57)
[2017-08-21] MEDS: PANTOPRAZOLE SODIUM 40 MG TAB PO SCH (08:57)
[2017-08-21] MEDS: COLLAGENASE 30 GM OINTMENT TP SCH (11:52)
--- NOTE | 2017-08-21 13:05 | HOSPPROG ---
Hospitalist Progress Note Assessment/Plan: #Acute hypoxic resp failure: due to aspiration PNA -change to Augmentin -no PE on CTA #Urinary retention: on several offending meds: TCA, oxybutynin, Flexeril. Declines straight cath; wants feliz. Explained the risk for infection and he acknowledged these #Concern for CVA: per patient/family, speech slurred. 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 Speech better with dentures. Passed speech eval #MS: cont home meds #Suspected COPD exacerbation: significant tobacco hx. Add prednisone today #Chronic pain and opioid dependency #Dysphagia: cleared by speech #Sepsis: resolved. Due to PNA #Bipoloar d/o: zyprexa #Right buttock pressure injury: present at admit. Wound care #Diet: regular #DVT ppx: lovenox #Disp: stable for med floor. Cont inpt admission for abx, nebs Subjective: coughing up green sputum Objective: Vital Signs Temp Pulse Resp BP Pulse Ox 36.4 C 80 16 138/83 H 99 08/21/17 08:00 08/21/17 08:00 08/21/17 08:00 08/21/17 08:00 08/21/17 08:00 08/20/17 08/21/17 08/22/17 05:59 05:59 05:59 Intake Total 1408 1130 Output Total 2900 3600 Balance -1492 -2470 PT 13.4 SEC (12.0-15.0) 08/18/17 11:15 INR 1.00 (0.83-1.16) 08/18/17 11:15 - Time Spent With Patient Time Spent with Patient: greater than 35 minutes Time Spent with Patient: Greater than 35 minutes spent on this patients care, greater than 50% of time spent counseling, educating, and coordinating care regarding the above mentioned plan. - Physical Exam Constitutional: no apparent distress Eyes: PERRL Ears, Nose, Mouth, Throat: moist mucous membranes Cardiovascular: regular rate and rhythym Respiratory: expiratory wheeze, rhonchi Gastrointestinal: normoactive bowel sounds, soft, non-tender abdomen Genitourinary: no bladder fullness, No no bladder tenderness, No feliz in urethra Skin: warm Musculoskeletal: full muscle strength Psychiatric: interacting appropriately ICD10 Worksheet Patient Problems: Problems Problem Status Onset Pneumonia Acute Sepsis Acute
[2017-08-21] MEDS: predniSONE 20 MG TAB PO SCH (13:19)
[2017-08-21] MEDS: AMITRIPTYLINE HCL 10 MG TAB PO SCH (21:20)
[2017-08-21] MEDS: OLANZapine 5 MG TAB PO SCH (21:20)
[2017-08-21] MEDS: ZOLPIDEM TARTRATE 5 MG TAB PO SCH (21:21)
[2017-08-21] MEDS: TAMSULOSIN HCL 0.4 MG CAP PO SCH (21:21)
[2017-08-21] MEDS: OXYBUTYNIN CHLORIDE 5 MG TAB PO SCH (21:21)
[2017-08-21] MEDS: DALFAMPRIDINE 10 MG PO SCH (21:21)
[2017-08-21] MEDS: NON-FORMULARY NEW DRUG (Dalfampridine [Ampyra] 10 MG) PO SCH ×2 (21:23→21:29)
[2017-08-21] MEDS: ALBUTEROL 60 PUFFS/8 GM MDI IH SCH (21:45)
[2017-08-21] MEDS: ACETAMINOPHEN 325 MG TAB PO PRN (21:57)
[2017-08-22] MEDS: oxyCODONE CR 30 MG TAB PO SCH ×4 (05:15→21:07)
[2017-08-22] MEDS: CLINDAMYCIN 600 MG/DEXTROSE 50 ML IV SCH (05:15)
[2017-08-22] MEDS: PANTOPRAZOLE SODIUM 40 MG TAB PO SCH (08:58)
[2017-08-22] MEDS: GABAPENTIN 400 MG CAP PO SCH ×3 (08:59→21:08)
[2017-08-22] MEDS: DIAZEPAM 5 MG TAB PO SCH ×2 (08:59→21:08)
[2017-08-22] MEDS: buPROPion XL 150 MG TAB PO SCH ×2 (08:59→21:08)
[2017-08-22] MEDS: METOPROLOL TARTRATE 50 MG TAB PO SCH ×2 (08:59→21:08)
[2017-08-22] MEDS: predniSONE 20 MG TAB PO SCH (08:59)
[2017-08-22] MEDS: FOLIC ACID 1 MG TAB PO SCH (08:59)
[2017-08-22] MEDS: ENOXAPARIN 40 MG/0.4 ML SYR SC SCH (09:00)
[2017-08-22] MEDS: busPIRone 15 MG TAB PO SCH ×2 (09:00→21:07)
[2017-08-22] MEDS: CYCLOBENZAPRINE 10 MG TAB PO SCH ×2 (09:00→21:07)
[2017-08-22] MEDS: DALFAMPRIDINE 10 MG PO SCH ×2 (09:01→21:07)
[2017-08-22] MEDS: COLLAGENASE 30 GM OINTMENT TP SCH (09:02)
--- NOTE | 2017-08-22 09:41 | HOSPPROG ---
Hospitalist Progress Note Assessment/Plan: #Acute hypoxic resp failure: due to aspiration PNA. Day 07/04 abx -change to Augmentin. Suspect underlying COPD contributing -no PE on CTA #Urinary retention: on several offending meds: TCA, oxybutynin, Flexeril. Declines straight cath. Feliz placed; explained the risk for infection and he acknowledged these #Concern for CVA: per patient/family, speech slurred. 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 Speech better with dentures. Passed speech eval #MS: cont home meds #Suspected COPD exacerbation: significant tobacco hx. Day 2 prednisone, nebs #Deconditioning: very weak with transferring. Wants to go home. Inpatient rehab is recommended, but very he is resistant. Asked family to help encourage this for safe dispo #Chronic pain and opioid dependency #Dysphagia: cleared by speech #Sepsis: resolved. Due to PNA #Bipoloar d/o: zyprexa #Right buttock pressure injury: present at admit. Wound care #Diet: regular #DVT ppx: lovenox #Disp: stable for med floor. Cont inpt admission for abx, nebs. Updated his brother on clinical status Subjective: SOB, very weak with ambulation Objective: Vital Signs Temp Pulse Resp BP Pulse Ox 36.9 C 73 16 124/70 H 91 L 08/22/17 08:00 08/22/17 08:00 08/22/17 08:00 08/22/17 08:00 08/22/17 08:00 Laboratory Results 08/22/17 04:35 08/22/17 04:35 08/21/17 08/22/17 08/23/17 05:59 05:59 05:59 Intake Total 1130 1300 Output Total 3600 2115 Balance -2470 -2375 PT 13.4 SEC (12.0-15.0) 08/18/17 11:15 INR 1.00 (0.83-1.16) 08/18/17 11:15 - Time Spent With Patient Time Spent with Patient: greater than 35 minutes Time Spent with Patient: Greater than 35 minutes spent on this patients care, greater than 50% of time spent counseling, educating, and coordinating care regarding the above mentioned plan. - Physical Exam Constitutional: chronically ill appearing Eyes: PERRL Ears, Nose, Mouth, Throat: moist mucous membranes Cardiovascular: regular rate and rhythym Respiratory: reduced air movement, expiratory wheeze, rhonchi Gastrointestinal: normoactive bowel sounds Genitourinary: feliz in urethra Skin: warm Musculoskeletal: full muscle strength Neurologic: AAOx3, CN II-XII Intact Psychiatric: flat affect ICD10 Worksheet Patient Problems: Problems Problem Status Onset Pneumonia Acute Sepsis Acute
[2017-08-22] MEDS: ALBUTEROL 60 PUFFS/8 GM MDI IH SCH ×2 (09:52→21:15)
[2017-08-22] MEDS: ACETAMINOPHEN 325 MG TAB PO PRN ×2 (16:27→21:08)
--- NOTE | 2017-08-22 16:28 | ASMTCMCOM ---
CM Note CM Note Notes: Patient lives alone and tries to manage as independently as possible. He is current with [facility] and has caregivers 3x/wk. Therapists are recommending In-pt Rehab. Laft message for Cynthia. Dulce WALKER Order. Date Signed: 08/22/2017 04:28 PM Electronically Signed By:Clarisse Summers LCSW
--- NOTE | 2017-08-22 17:23 | WOCRNPDOC ---
[facility]CR[facility] Advanced Assessment Note - Skin Integrity Problem, Advanced Assess Left Posterior Medial Leg Unknown Dressing Type: Allevyn Life, Telfa Dressing Description: Clean/Dry, Intact Exudate Amount: Scant Exudate Color: Reddish/Yellow Exudate Characteristic(s): Serosanguinous Integumentary Issue Intervention: Dressing Changed Court Wound Tissue: Painful/Tender Wound Bed Color: Yellow Wound Bed Constitution: Tunneling (0.5cm tunneling at 12 oclock), Adhered Slough (100%) Site Measurement - Head-to-Toe Length X Width X Depth (cm): 1x1.6x0.5 Pressure Injury Stage: Stage 3, Audio Video Tech Related Pressure Injury Pressure Injury Present on Admit: No Skin Integrity Problem Comment: Dressing removed was allevyn life and telfa. Wound cleansed with ns. Wound bed is adhered slough. Wound explored with tunneling at 12 oclock 0.5 cm. Tunnel is too narrow to pack (tunnel is the width of the plastic end of a q-tip). Santyl applied with telfa and secured with tegaderm. Wound care will round again on Tuesday. Leidy BENITES in room for care. Sherrell Cano RN Wound Care Team. Left Ankle Dressing Type: Allevyn Life Dressing Description: Clean/Dry, Intact, Shadowed Exudate Amount: Minimal Exudate Color: Reddish/Yellow Exudate Characteristic(s): Serosanguinous Integumentary Issue Intervention: Visualized Under Dressing Court Wound Tissue: Blanching, Macerated, Painful/Tender Court Wound Swelling: None Wound Bed Color: Red, Yellow Wound Bed Constitution: Granulation Tissue (90%), Adhered Slough (10%) Wound Edges: Attached, Irregular Site Odor: None Site Measurement - Head-to-Toe Length X Width X Depth (cm): 0.7x0.8x0.5 Pressure Injury Stage: Stage 3 Pressure Injury Present on Admit: Yes Skin Integrity Problem Comment: Stage 3 pressure injury present on admission. Dressing was removed and wound was cleansed with ns. Moderate amount of slough removed from wound bed with mechanical debridement revealing granulation tissue. Wound gel was applied and dressing put back on. Wound care will round again on Tuesday. Leidy BENITES in room for care. Sherrell Cano RN wound care team. Right Distal Sacrum Pressure Injury Dressing Description: Clean/Dry, Intact Exudate Amount: None Integumentary Issue Intervention: Dressing Removed Court Wound Tissue: Blanching Court Wound Swelling: None Wound Bed Constitution: Healed Site Odor: None Site Measurement - Head-to-Toe Length X Width X Depth (cm): 2x2x0 Pressure Injury Stage: Stage 2 Pressure Injury Present on Admit: Yes Skin Integrity Problem Comment: Healed stage 2 pressure injury present on admission. Scarred area that is epithelialized. Wound care will not follow this wound, please re-consult PRN. Leidy BENITES in room for care. Sherrell Cano RN Wound care team.
[2017-08-22] MEDS: AMOXICILLIN/CLAVULANATE POT 875/125 MG TAB PO SCH (21:07)
[2017-08-22] MEDS: OXYBUTYNIN CHLORIDE 5 MG TAB PO SCH (21:07)
[2017-08-22] MEDS: ZOLPIDEM TARTRATE 5 MG TAB PO SCH (21:07)
[2017-08-22] MEDS: OLANZapine 5 MG TAB PO SCH (21:08)
[2017-08-22] MEDS: TAMSULOSIN HCL 0.4 MG CAP PO SCH (21:08)
[2017-08-22] MEDS: AMITRIPTYLINE HCL 10 MG TAB PO SCH (21:08)
[2017-08-23] MEDS: oxyCODONE CR 30 MG TAB PO SCH ×4 (05:10→21:19)
[2017-08-23] MEDS: ACETAMINOPHEN 325 MG TAB PO PRN ×3 (05:15→21:20)
[2017-08-23] MEDS: IPRATROPIUM/ALBUTEROL 3 ML DEYVIAL IH PRN ×2 (09:13→16:14)
[2017-08-23] MEDS: ALBUTEROL 60 PUFFS/8 GM MDI IH SCH ×2 (09:14→16:13)
[2017-08-23] MEDS: ENOXAPARIN 40 MG/0.4 ML SYR SC SCH (09:38)
[2017-08-23] MEDS: GABAPENTIN 400 MG CAP PO SCH ×3 (09:39→21:21)
[2017-08-23] MEDS: DALFAMPRIDINE 10 MG PO SCH ×2 (09:40→21:22)
[2017-08-23] MEDS: DIAZEPAM 5 MG TAB PO SCH ×2 (09:41→21:21)
[2017-08-23] MEDS: AMOXICILLIN/CLAVULANATE POT 875/125 MG TAB PO SCH ×2 (09:42→21:21)
[2017-08-23] MEDS: CYCLOBENZAPRINE 10 MG TAB PO SCH ×2 (09:42→21:21)
[2017-08-23] MEDS: PANTOPRAZOLE SODIUM 40 MG TAB PO SCH (09:42)
[2017-08-23] MEDS: predniSONE 20 MG TAB PO SCH (09:42)
[2017-08-23] MEDS: FOLIC ACID 1 MG TAB PO SCH (09:42)
[2017-08-23] MEDS: buPROPion XL 150 MG TAB PO SCH ×2 (09:42→21:21)
[2017-08-23] MEDS: METOPROLOL TARTRATE 50 MG TAB PO SCH ×2 (09:42→21:21)
[2017-08-23] MEDS: busPIRone 15 MG TAB PO SCH ×2 (09:42→21:21)
--- NOTE | 2017-08-23 12:15 | HOSPPROG ---
Hospitalist Progress Note Assessment/Plan: #Acute hypoxic resp failure: improved, now 3L. From PNA, COPD. No PE on CTA #Aspiration PNA: Day 6/ abx #Suspect underlying COPD with exacerbation Day 3 pred, Nebs #Urinary retention: on several offending meds: TCA, oxybutynin, Flexeril. Declines straight cath. Feliz placed; explained the risk for infection and he acknowledged these #Concern for CVA: per patient/family, speech slurred. 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 Speech better with dentures. Passed speech eval #MS: cont home meds #Deconditioning: agreeable to rehab. CM assisting. Inpt rehab to evaluate #Chronic pain and opioid dependency: cont home meds #Dysphagia: cleared by speech #Sepsis: resolved. Due to PNA #Bipoloar d/o: zyprexa #Buttock pressure injury: present at admit. Wound care #Diet: regular #DVT ppx: lovenox #Disp: stable for med floor. Cont inpt admission for abx, nebs. Awaiting rehab evaluation. Can DC in 1-2 days Subjective: feeling better today. Agreeable to rehab Objective: Vital Signs Temp Pulse Resp BP Pulse Ox 36.8 C 69 15 122/89 H 91 L 08/23/17 08:00 08/23/17 09:42 08/23/17 09:19 08/23/17 09:42 08/23/17 09:19 Laboratory Results 08/22/17 04:35 08/22/17 04:35 08/22/17 08/23/17 08/24/17 05:59 05:59 05:59 Intake Total 1300 250 Output Total 7285 3600 Balance -2375 -3350 PT 13.4 SEC (12.0-15.0) 08/18/17 11:15 INR 1.00 (0.83-1.16) 08/18/17 11:15 - Time Spent With Patient Time Spent with Patient: greater than 35 minutes Time Spent with Patient: Greater than 35 minutes spent on this patients care, greater than 50% of time spent counseling, educating, and coordinating care regarding the above mentioned plan. - Physical Exam Constitutional: other (more color to face. ) Eyes: PERRL Ears, Nose, Mouth, Throat: moist mucous membranes Cardiovascular: regular rate and rhythym Respiratory: reduced air movement, expiratory wheeze, rhonchi Gastrointestinal: normoactive bowel sounds Genitourinary: feliz in urethra Skin: warm, other (wound over left knee, buttock, dressed, CDI) Musculoskeletal: generalized weakness Neurologic: AAOx3, CN II-XII Intact Psychiatric: interacting appropriately ICD10 Worksheet Patient Problems: Problems Problem Status Onset Pneumonia Acute Sepsis Acute
[2017-08-23] MEDS: guaiFENesin 600 MG TAB.ER PO SCH ×2 (12:25→21:21)
--- NOTE | 2017-08-23 15:19 | ASMTCMCOM ---
CM Note CM Note Notes: Spoke with patient who states he is interested in [facility]'s inpatient program. Ama Dick has confirmed that their inpatient program is closed and they only have outpatient rehab. Ama Dick did talk at length on the phone with patient and explained the difference in rehab programs and emphasized patient needing an inpatient program to get him stronger and more competant with his transitions. Patient's response was he prefers to go home with home health care. He does understand the recommendation for him is inpatient rehab. Patient is still trying to make his decision. Ama states he is eligible for their program and they will take him if he decides to participate. Referral to [facility] inpatient rehab was made via [employer]. CM will follow. Date Signed: 08/23/2017 03:18 PM Electronically Signed By:Yeimy Patel LCSW
[2017-08-23] MEDS: COLLAGENASE 30 GM OINTMENT TP SCH (16:05)
[2017-08-23] MEDS: OLANZapine 5 MG TAB PO SCH (21:20)
[2017-08-23] MEDS: ZOLPIDEM TARTRATE 5 MG TAB PO SCH (21:20)
[2017-08-23] MEDS: TAMSULOSIN HCL 0.4 MG CAP PO SCH (21:21)
[2017-08-23] MEDS: OXYBUTYNIN CHLORIDE 5 MG TAB PO SCH (21:21)
[2017-08-23] MEDS: AMITRIPTYLINE HCL 10 MG TAB PO SCH (21:21)
[2017-08-24] MEDS: oxyCODONE CR 30 MG TAB PO SCH ×4 (05:22→21:56)
[2017-08-24] MEDS: ACETAMINOPHEN 325 MG TAB PO PRN ×3 (06:05→22:07)
[2017-08-24] MEDS: busPIRone 15 MG TAB PO SCH ×2 (09:17→21:55)
[2017-08-24] MEDS: GABAPENTIN 400 MG CAP PO SCH ×3 (09:17→21:56)
[2017-08-24] MEDS: AMOXICILLIN/CLAVULANATE POT 875/125 MG TAB PO SCH ×2 (09:17→21:54)
[2017-08-24] MEDS: DIAZEPAM 5 MG TAB PO SCH ×2 (09:17→21:55)
[2017-08-24] MEDS: buPROPion XL 150 MG TAB PO SCH ×2 (09:18→21:56)
[2017-08-24] MEDS: predniSONE 20 MG TAB PO SCH (09:18)
[2017-08-24] MEDS: guaiFENesin 600 MG TAB.ER PO SCH ×2 (09:18→21:54)
[2017-08-24] MEDS: PANTOPRAZOLE SODIUM 40 MG TAB PO SCH (09:18)
[2017-08-24] MEDS: METOPROLOL TARTRATE 50 MG TAB PO SCH ×2 (09:18→21:54)
[2017-08-24] MEDS: CYCLOBENZAPRINE 10 MG TAB PO SCH ×2 (09:18→21:56)
[2017-08-24] MEDS: FOLIC ACID 1 MG TAB PO SCH (09:18)
[2017-08-24] MEDS: ENOXAPARIN 40 MG/0.4 ML SYR SC SCH (09:19)
[2017-08-24] MEDS: DALFAMPRIDINE 10 MG PO SCH ×2 (09:20→22:07)
[2017-08-24] MEDS: COLLAGENASE 30 GM OINTMENT TP SCH (09:21)
[2017-08-24] MEDS: ALBUTEROL 60 PUFFS/8 GM MDI IH SCH ×2 (09:39→16:17)
[2017-08-24] MEDS: IPRATROPIUM/ALBUTEROL 3 ML DEYVIAL IH PRN ×3 (09:39→20:20)
--- NOTE | 2017-08-24 13:30 | HOSPPROG ---
Hospitalist Progress Note Assessment/Plan: 56y male with weakness. First encounter, chart reviewed. D/W RN and CM. #Acute hypoxic resp failure: improved, now 3L. From PNA, COPD. No PE on CTA #Aspiration PNA: Day 7 abx DC #Suspect underlying COPD with exacerbation Day 3 pred, Nebs #Urinary retention: on several offending meds: TCA, oxybutynin, Flexeril. Declines straight cath. Feliz placed; will DC with feliz explained the risk for infection and he acknowledged these #Concern for CVA: per patient/family, speech slurred. 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 Speech not slurred today with dentures. Passed speech eval #MS: cont home meds #Deconditioning: not agreeable to rehab. CM assisting. Inpt rehab accepted pt wants HHC but not safe #Chronic pain and opioid dependency: cont home meds #Dysphagia: cleared by speech #Sepsis: resolved. Due to PNA #Bipoloar d/o: zyprexa #Buttock pressure injury: present at admit. Wound care #Diet: regular #DVT ppx: lovenox #Disp: stable for med floor. ready for dc but unable to safely DC home Cont inpt admission for abx, nebs. reviewed with CM..... will work on convincing patient of a safe DC Subjective: Refusing to go to rehab. No pain currently. Angry. Objective: Vital Signs Temp Pulse Resp BP Pulse Ox 36.7 C 68 18 125/79 H 92 08/24/17 07:22 08/24/17 10:15 08/24/17 09:40 08/24/17 07:22 08/24/17 10:15 Laboratory Results 08/22/17 04:35 08/22/17 04:35 08/23/17 08/24/17 08/25/17 05:59 05:59 05:59 Intake Total 250 450 Output Total 3600 3800 Balance -3350 -3350 PT 13.4 SEC (12.0-15.0) 08/18/17 11:15 INR 1.00 (0.83-1.16) 08/18/17 11:15 - Physical Exam Constitutional: appears nourished, not in pain, chronically ill appearing Eyes: PERRL, anicteric sclera, EOMI Ears, Nose, Mouth, Throat: moist mucous membranes, hearing normal, ears appear normal Cardiovascular: No JVD, No tachycardia, No edema Respiratory: no respiratory distress, no rales or rhonchi, reduced air movement Gastrointestinal: normoactive bowel sounds, No tenderness, No ascites Skin: warm, normal color, abrasion, No mottled Musculoskeletal: pain with ROM, muscular tenderness, generalized weakness Neurologic: AAOx3 Psychiatric: not encephalopathic, anxious, poor insight, poor judgement ICD10 Worksheet Patient Problems: Problems Problem Status Onset Sepsis Acute Pneumonia Acute
--- NOTE | 2017-08-24 16:01 | ASMTCMCOM ---
CM Note CM Note Notes: CM spoke w/pt re; dc poc. Pt under no earthly circumstances will go to rehab, acute or otherwise. CM reviewed several safety concerns due to his MS but pt uninterested. He will only accept going home with [facility] and agreed to increased hours through [facility] services. CM called pt's case maker Melania [phone] and left a vm. CM called and spoke with Janeen at [facility] and notified her that pt will likely dc tomorrow. Pt states he will arrange for a ride home. I also spoke with pt's RN through [facility], she also has concerns for his ability to function independently at home but has refused any safety measures such as: wearing his Life alert button. She also has notified [facility]. Despite all this pt continues to hold firm in what he wants and since he is decisional, he is able to refuse our suggestions. DC Plan: Home Care/[facility] + [facility] services nurse care manager Marlena Shearer [phone] Date Signed: 08/24/2017 03:53 PM Electronically Signed By:Shira Menendez RN
--- NOTE | 2017-08-24 16:02 | ASMTLACE ---
JOSEE Length of stay for Answers: 4-6 days current admission Acuity / Level of Answers: Yes Care: Did the patient have an inpatient admission? Comorbidities - select Answers: Opioid dependence all that apply / Chronic pain Other Notes: Multiple sclerosis; HTN # of Emergency department Answers: 1-2 visits in the last 6 months Social determinants Answers: Mental health diagnosis (anxiety, depression, pers onality disorders, etc.) Score: 16 Date Signed: 08/24/2017 04:01 PM Electronically Signed By:Shira Menendez RN
[2017-08-24] MEDS ORDERED: INTERFERON BETA 30 MCG IM SCH (17:16)
[2017-08-24] MEDS: OXYBUTYNIN CHLORIDE 5 MG TAB PO SCH (21:54)
[2017-08-24] MEDS: OLANZapine 5 MG TAB PO SCH (21:54)
[2017-08-24] MEDS: TAMSULOSIN HCL 0.4 MG CAP PO SCH (21:54)
[2017-08-24] MEDS: ZOLPIDEM TARTRATE 5 MG TAB PO SCH (21:56)
[2017-08-24] MEDS: AMITRIPTYLINE HCL 10 MG TAB PO SCH (22:10)
[2017-08-25] MEDS: oxyCODONE CR 30 MG TAB PO SCH (05:09)
[2017-08-25 07:11] VITALS: BP 125/78
[2017-08-25] MEDS: ALBUTEROL 60 PUFFS/8 GM MDI IH SCH (08:37)
[2017-08-25] MEDS: DALFAMPRIDINE 10 MG PO SCH (09:26)
[2017-08-25] MEDS: buPROPion XL 150 MG TAB PO SCH (09:27)
[2017-08-25] MEDS: GABAPENTIN 400 MG CAP PO SCH (09:27)
[2017-08-25] MEDS: CYCLOBENZAPRINE 10 MG TAB PO SCH (09:29)
[2017-08-25] MEDS: guaiFENesin 600 MG TAB.ER PO SCH (09:29)
[2017-08-25] MEDS: FOLIC ACID 1 MG TAB PO SCH (09:29)
[2017-08-25] MEDS: DIAZEPAM 5 MG TAB PO SCH (09:29)
[2017-08-25] MEDS: busPIRone 15 MG TAB PO SCH (09:30)
[2017-08-25] MEDS: METOPROLOL TARTRATE 50 MG TAB PO SCH (09:31)
[2017-08-25] MEDS: PANTOPRAZOLE SODIUM 40 MG TAB PO SCH (09:32)
[2017-08-25] MEDS: predniSONE 20 MG TAB PO SCH (09:32)
[2017-08-25] MEDS: ENOXAPARIN 40 MG/0.4 ML SYR SC SCH (09:32)
[2017-08-25] MEDS: COLLAGENASE 30 GM OINTMENT TP SCH (09:37)
[2017-08-25] MEDS: IPRATROPIUM/ALBUTEROL 3 ML DEYVIAL IH PRN (09:38)
--- NOTE | 2017-08-25 10:11 | PDIAF ---
- Diagnosis Diagnosis: pna Code Status: Full Code - Medication Management Discharge Medications: Medications to Continue on Transfer Albuterol [Proventil Inhaler HFA (*)] 1 puffs IH BID 08/18/17 [Last Taken Unknown] Amitriptyline HCl [Elavil 10 mg (*)] 10 mg PO HS 08/18/17 [Last Taken Unknown] Cyclobenzaprine [Flexeril 10 MG (*)] 10 mg PO BID 08/18/17 [Last Taken Unknown] Dalfampridine [AMPYRA] 10 mg PO BID 08/18/17 [Last Taken Unknown] Diazepam [Valium 10 MG (*)] 10 mg PO BID 08/18/17 [Last Taken Unknown] Folic Acid [Folic Acid 1 MG (*)] 1 mg PO DAILY 08/18/17 [Last Taken Unknown] Gabapentin [Neurontin 400 MG (*)] 800 mg PO TID 08/18/17 [Last Taken Unknown] Hydrochlorothiazide [HCTZ (*)] 50 mg PO DAILY PRN 08/18/17 [Last Taken Unknown] Ibuprofen [Motrin (*)] 400 mg PO Q4HRS PRN 08/18/17 [Last Taken Unknown] Interferon Beta-1A [Avonex] 30 mcg IM WE 08/18/17 [Last Taken Unknown] Linaclotide [Linzess] 145 mcg PO DAILY PRN 08/18/17 [Last Taken Unknown] Metoprolol Tartrate [Lopressor 50 mg (*)] 75 mg PO BID 08/18/17 [Last Taken Unknown] OLANZapine [Zyprexa] 15 mg PO HS 08/18/17 [Last Taken Unknown] Oxybutynin Chloride 5 mg PO HS 08/18/17 [Last Taken Unknown] Pantoprazole Sodium [Protonix 40mg (*)] 40 mg PO DAILY 08/18/17 [Last Taken Unknown] Polyethylene Glycol 3350 [Miralax 17 gm (*)] 17 gm PO DAILY PRN 08/18/17 [Last Taken Unknown] Tamsulosin HCl [Flomax 0.4 MG (*)] 0.4 mg PO HS 08/18/17 [Last Taken Unknown] Testosterone IM [Testosterone 100mg/ml IM inj (*)] 300 mg IM Q30D 08/18/17 [ Last Taken Unknown] ZOLPIDEM TARTRATE [Ambien CR 12.5 mg] 12.5 mg PO HS 08/18/17 [Last Taken Unknown ] buPROPion XL [Wellbutrin 150mg XL] 150 mg PO BID 08/18/17 [Last Taken Unknown] busPIRone [Buspar (*)] 30 mg PO BID 08/18/17 [Last Taken Unknown] oxyCODONE HCL [Oxycontin] 60 mg PO BID 08/18/17 [Last Taken Unknown] tiZANidine HCL [Zanaflex] 4 mg PO TID PRN 08/18/17 [Last Taken Unknown] Acetaminophen [Tylenol 325mg (*)] 650 mg PO Q4 PRN tab 08/25/17 [Last Taken Unknown] guaiFENesin [Mucinex 600 MG (*)] 600 mg PO BID tab.er 08/25/17 [Last Taken Unknown] Discharge Medications: Refer to the Discharge Home Medication list for PRN reason. PICC Care - Routine: N/A - Orders Services needed: Home Care, Registered Nurse, Physical Therapy, Occupational Therapy Home Care Face to Face: I certify that this patient was under my care and that I had the required [id number] encounter meeting the encounter requirements on the discharge day. My findings support the fact that the patient is homebound as defined in Home Care Face to Face Continued: CMS Chapter 7 Medicare Benefits Manual 30.1.1 , The condition of the patient is such that there exists a normal inability to leave home and consequently, leaving home would require a considerable and taxing effort. Isolation Type: None Diet Texture: Regular Texture Diet, Thin Liquids, Meds Whole w/Liquids Additional Instructions: Wound care: Please contact [facility] outpatient [facility] for an appointment, at for a follow up appointment. Dressing change to posterior proximal left lower leg DAILY and PRN impaired dressin. clean site w normal saline (NOT wound cleanser) and gauze. 2. Apply skin prep to periwound and all red areas. 3. Apply santyl/collagenase to wound base. It needs to be at least 1/8 of an inch thick and covering the entire wound bed. It needs to be thick like cupcake icing over the WHOLE area on the wound bed. 4. Cover with a piece of telfa cut to FIT the wound bed. It should not touch the skin. 5. Secure with tegaderm. Leidy BENITES Change dressings to left lateral ankle every 3 days and prn. 1. Clean with ns and gauze 2. Skin prep edmund wound 3. Wound gel to wound bed 4. Cover with Allevyn Life or other border foam dressing Sherrell Cano RN Wound care team Please follow up within 3- 4 weeks of discharge with outpatient Wound Healing Center if you continue to have issues with your wounds: You may reach them at [phone] for an appointment and continued management of your wounds. Please call them wendy to schedule your appointment as they fill up quickly. If before that time you have any issues please follow up with your PCP. Wound care: Bedsore (Pressure injury) care: You have a stage 3 pressure injury (also known as a bedsore) on the outside of your left ankle, behind your left knee from the coban, and a healed stage 2 pressure injury to the lowest part of your back (sacrum). To help heal this wound and avoid further injury please do the followin. Reposition yourself frequently, at least every 15 minutes when sitting. We recommend sitting on an air cushion. Please never use a doughnut. 2. When youre in bed, try to rest on your side as much as possible, and change position every two hours (for example, turn or tilt from your right side toward your left).~ If you sleep on a sleep number or medical bed, keep the head of the bed below 30 degrees and keep all pressure off your low back for at least 5 minutes at least every two hours.~ 3. As needed, you may use Calazime, dimethicone moisture barrier cream, or any [id number] diaper rash cream to help prevent or treat a moisture- related rash to your bottom area and buttocks. 4. Do not let your ankle rest against the leg support of your wheelchair. Please contact [facility] outpatient Wound Healing Center for an appointment, at , If your wounds re/open or dont improve, or if you have any further questions or concerns. Leidy BENITES - Follow Up Care Current Providers and Referrals: Maldonado Manning MD [Primary Care Provider] - As per Instructions
--- NOTE | 2017-08-25 11:43 | ASMTDCNOTE ---
Case Management Discharge Discharge Order Complete? Answers: Yes Patient to Obtain Answers: Independently Medications Transportation Arranged Answers: Family/Friends Faxed Final Orders Answers: Yes Agency/Facility Transfer Answers: Yes Report Printed & Faxed to Receiving Agency Discharge Comments Notes: Dw/[facility], final orders faxed. Janeen at [facility], Marlena (caregiver/ [facility]), and Melania UP at [facility] notified of pt's discharge, Melania to work with [facility] to increase HCBS services. Date Signed: 08/25/2017 11:43 AM Electronically Signed By:Shira Menendez RN
--- NOTE | 2017-08-25 16:40 | GDS ---
[f rep st] DISCHARGE SUMMARY DISCHARGE DIAGNOSES: 1. Acute hypoxemic respiratory failure. 2. Aspiration pneumonia. 3. Chronic obstructive pulmonary disease with exacerbation. 4. Urinary retention. 5. History of multiple sclerosis. 6. Deconditioning. 7. Chronic pain on opioid dependency. 8. Bipolar disorder. 9. Sepsis. 10. Pressure injury. PHYSICAL EXAMINATION: GENERAL: The patient is alert. VITAL SIGNS: Afebrile at 36.6, pulse is 76, respiratory rate 17, blood pressure is 125/78. He is saturating 93% on 4 L. I have seen evaluated t he patient on the day of discharge. HOSPITAL COURSE: This is a 56-year-old male who presented to the emergency room with complaints of w eakness. He was evaluated and diagnosed with: 1. Aspiration pneumonia. He received antibiotic therapy during this hospitalization and has complet ed the course of antibiotics. 2. Acute hypoxemic respiratory failure. This is multifactorial, secondary to COPD as well as pneumo sophy. 3. COPD with exacerbation. The patient has been treated with nebulizing treatments, as well as ster oids. He will continue oxygen in the outpatient setting. 4. Urinary retention. The patient has been educated with regard to this. A Blas catheter has been placed. He will follow up with the urologist in the outpatient setting of his choice. 5. History of MS. Home medications have been continued. 6. Deconditioning. The patient has not agreed to go to inpatient rehabilitation or senior care facility. He demands to go home with home health care. I have expressed to him that this is not saf e for him; however, he is of decisional capacity and can make this choice independently. 7. Chronic pain with opioid dependency. His home medications have been continued. 8. Bipolar disorder. Zyprexa has been continued. 9. Pressure injury. This was present on admission. He will continue wound care in the outpatient s etting. DISPOSITION: The patient will be discharged home with increases in his home health care. Again, it has been recommended that he go to inpatient rehabilitation. He is refusing at this time. I discuss ed the patient's disposition with Case Management and we have both expressed to him that it is not a good idea for him to go home independently with home health care. He understands and is refusing any other options. DISCHARGE MEDICATIONS: Please refer to EMR form. I have discontinued the patient's previously presc ribed amoxicillin. FOLLOWUP: Followup will be with the patient's primary care physician, as well as his previously arra nged home health care. I spent greater than 35 minutes in the care, coordination, and management of the patient's ayleeno n. /[id number]/MODL
== END 2017-08-25 11:50 | disposition home health service (06) | DRG 871 ==
LOC: INTOOBSV 12:10 → F3N 14:07 → OBSVTOIN 08-19 10:32 → F2N 08-19 11:09 → F3E 08-20 15:32
PROVIDERS: ADMIT Student in an Organized Health Care Education/Training Program; ATTEND Student in an Organized Health Care Education/Training Program
DX: A41.9 Sepsis, unspecified organism (principal); J69.0 Pneumonitis due to inhalation of food and vomit; J96.01 Acute respiratory failure with hypoxia; L89.893 Pressure ulcer of other site, stage 3; L89.523 Pressure ulcer of left ankle, stage 3; J44.1 Chronic obstructive pulmonary disease with (acute) exacerbation; F11.20 Opioid dependence, uncomplicated; E86.0 Dehydration; R33.9 Retention of urine, unspecified; G35 Multiple sclerosis; G89.29 Other chronic pain; F31.9 Bipolar disorder, unspecified; L89.152 Pressure ulcer of sacral region, stage 2; I10 Essential (primary) hypertension; E66.9 Obesity, unspecified; Z68.33 Body mass index [BMI] 33.0-33.9, adult; Z87.891 Personal history of nicotine dependence
CPT/HCPCS: 83605-PO; 92526-GN; 92610-GN; 97116-GP; 97163-GP; 97166-GO; 97530-GO; 97530-GP; 97535-GO; G0378; G8978-GP-CL; G8979-GP-CK; G8987-GO-CK; G8988-GO-CJ; G8996-GN-CL; G8997-GN-CJ; J1650; J1940; J1956; J2310; J7512; Q9967

== ENCOUNTER → 2017-09-22 | Outpatient (CLI) | payer OTHER, MEDICAID ==
[~2017-09-22] MED LIST: GADOBUTROL 10 ML VIAL IVP ONE
== END ==
LOC: FIMAGING 15:37
PROVIDERS: ATTEND Psychiatry & Neurology Neurology
DX: G35 Multiple sclerosis (principal); R90.82 White matter disease, unspecified
CPT/HCPCS: 70553; A9585

== ENCOUNTER 2018-01-13 19:00 | Emergency (ER) | payer OTHER, MEDICAID ==
[2018-01-13] MEDS ORDERED: LIDOCAINE 2% JELLY 20 ML (UROJECT) UR ONE (19:02)
--- NOTE | 2018-01-13 19:03 | EDPHY ---
H & P Time Seen by Provider: 01/13/18 19:03 HPI/ROS: HPI CHIEF COMPLAINT: Pulled out Blas catheter HISTORY OF PRESENT ILLNESS: 57-year-old male, history of MS, chronic indwelling Blas catheter, states he was using the bathroom today he stood up and caught his Blas catheter and pulled it out. Multiple attempts were made to place a Blas catheter back in by home health nursing however was unsuccessful. Sent here to the emergency room to have new Blas catheter placed. States this happened earlier. Denies any complaints. Denies chest pain shortness of breath, denies fever, denies abdominal pain. Past Medical History: History of MS, COPD, hypoxic respiratory failure, sepsis , pressure injury, deconditioning, bipolar disorder, hypertension Past Surgical History: No Recent surgery Social History: Lives locally denies drugs alcohol tobacco. Family History: Noncontributory ROS REVIEW OF SYSTEMS: 10 Systems were reviewed and negative with the exception of the elements mentioned in the history of present illness. Exam Constitutional chronically unwell, nontoxic, triage nursing summary reviewed, vital signs reviewed, awake/alert. Patient's vital signs reviewed triage 88% sat. Patient tells me this is normal for him. Blood pressure elevated. Patient reports close to baseline. Eyes normal conjunctivae and sclera, EOMI, PERRLA. HENT normal inspection, atraumatic, moist mucus membranes, no epistaxis, neck supple/ no meningismus, no raccoon eyes. Respiratory clear to auscultation bilaterally, normal breath sounds, no respiratory distress, no wheezing. Cardiovascular rate normal, regular rhythm, no murmur, no edema, distal pulses normal. Gastrointestinal soft, non-tender, no rebound, no guarding, normal bowel sounds, no distension, no pulsatile mass. Genitourinary no CVA tenderness. Musculoskeletal no midline vertebral tenderness, full range of motion, no calf swelling, no tenderness of extremities, no meningismus, good pulses, neurovascularly intact. Skin pink, warm, & dry, no rash, skin atraumatic. Neurologic alert and oriented. At neurological baseline. Psychiatric normal mood/affect. Heme/Lymph/Immune no lymphadenopathy. Differential Diagnosis: But is not limited to in a particular order need for new Blas catheter. Urinary obstruction, urinary retention. Medical Decision Making: Plan for this patient: Will place new Blas catheter. Re-evaluation: 1954: Multiple attempts were made to place a Blas catheter. I additionally tried to attempt to place Blas catheter admit great resistance. In total he has had 7 attempts. 3 by home health. And for temps here in the emergency room. We did try of , , . There is no Coudet catheter at this facility. Patient has indwelling chronic Blas catheter, BPH. MS. Andrews spoke with [facility] Dr. Guerrero. Understands the patient will go to [facility] to have Blas catheter placed. Patient understands he needs to go directly to [facility] to time to have a Blas catheter placed there. After further discussion with [facility] there full, boarding patient' s in the ER, prefer the patient does not go directly to the ER as there full, hospital full. Will try to set up patient going to [facility]. The patient be discharged from [facility] ER to go by private vehicle with his family to [facility]. 2032: Pateint accepted at [facility]. Patient to go by private vehicle. Source: Patient - Personal History Tetanus Vaccine Date: 09/17/10 - Medical/Surgical History Hx Asthma: No Hx Chronic Respiratory Disease: No Hx Diabetes: No Hx Cardiac Disease: No Hx Renal Disease: No Hx Cirrhosis: No Hx Alcoholism: No Hx HIV/AIDS: No Hx Splenectomy or Spleen Trauma: No Other PMH: MS "brain damage" - Social History Smoking Status: Former smoker Constitutional: Initial Vital Signs Temperature (C) 37.1 C 01/13/18 19:13 Heart Rate 86 01/13/18 19:13 Respiratory Rate 18 01/13/18 19:13 Blood Pressure 170/117 H 01/13/18 19:13 O2 Sat (%) 88 L 01/13/18 19:13 O2 Delivery Mode Room Air Allergies/Adverse Reactions: No Known Allergies Allergy (Verified 01/13/18 19:11) Home Medications: Medication Instructions Recorded Albuterol [Proventil Inhaler HFA 1 puffs IH BID 08/18/17 (*)] Amitriptyline HCl [Elavil 10 mg 10 mg PO HS 08/18/17 (*)] Cyclobenzaprine [Flexeril 10 MG 10 mg PO BID 08/18/17 (*)] Dalfampridine [AMPYRA] 10 mg PO BID 08/18/17 Diazepam [Valium 10 MG (*)] 10 mg PO BID 08/18/17 Folic Acid [Folic Acid 1 MG (*)] 1 mg PO DAILY 08/18/17 Gabapentin [Neurontin 400 MG (*)] 800 mg PO TID 08/18/17 Hydrochlorothiazide [HCTZ (*)] 50 mg PO DAILY PRN 08/18/17 Ibuprofen [Motrin (*)] 400 mg PO Q4HRS PRN 08/18/17 Interferon Beta-1A [Avonex] 30 mcg IM WE 08/18/17 Linaclotide [Linzess] 145 mcg PO DAILY PRN 08/18/17 Metoprolol Tartrate [Lopressor 50 75 mg PO BID 08/18/17 mg (*)] OLANZapine [Zyprexa] 15 mg PO HS 08/18/17 Oxybutynin Chloride 5 mg PO HS 08/18/17 Pantoprazole Sodium [Protonix 40mg 40 mg PO DAILY 08/18/17 (*)] Polyethylene Glycol 3350 [Miralax 17 gm PO DAILY PRN 08/18/17 17 gm (*)] Tamsulosin HCl [Flomax 0.4 MG (*)] 0.4 mg PO HS 08/18/17 Testosterone IM [Testosterone 300 mg IM Q30D 08/18/17 100mg/ml IM inj (*)] ZOLPIDEM TARTRATE [Ambien CR 12.5 12.5 mg PO HS 08/18/17 mg] buPROPion XL [Wellbutrin 150mg XL] 150 mg PO BID 08/18/17 busPIRone [Buspar (*)] 30 mg PO BID 08/18/17 oxyCODONE HCL [Oxycontin] 60 mg PO BID 08/18/17 tiZANidine HCL [Zanaflex] 4 mg PO TID PRN 08/18/17 Acetaminophen [Tylenol 325mg (*)] 650 mg PO Q4 PRN tab 08/25/17 guaiFENesin [Mucinex 600 MG (*)] 600 mg PO BID tab.er 08/25/17 Cephalexin [Keflex (*)] 500 mg PO TID #21 cap 10/10/17 Medical Decision Making - Data Points Medications Given: Discontinued Medications Lidocaine (Uroject Lidocaine 2% Jelly) 20 ml UR EDNOW ONE Stop: 01/13/18 19:03 Last Admin: 01/13/18 19:20 Dose: 20 ml Departure - Departure Disposition: Home, Routine, Self-Care Clinical Impression: Blas catheter problem Qualifiers: Encounter type: initial encounter Qualified Code(s): T83.9XXA - Unspecified complication of genitourinary prosthetic device, implant and graft, initial encounter Condition: Good Instructions: Blas Catheter Placement and Care (ED) Additional Instructions: 1. You to go directly to [facility] 2. Go directly to the emergency room. 3. They will place a Blas catheter 4 you. Referrals: Maldonado Manning MD [Primary Care Provider] - As per Instructions
[2018-01-13] MEDS ORDERED: LIDOCAINE 2% JELLY 20 ML (UROJECT) ONE (19:45)
[2018-01-13 20:41] VITALS: BP 134/76
== END 2018-01-13 20:40 | disposition home or self-care (01) ==
LOC: CED 19:00
DX: T83.028A Displacement of other urinary catheter, initial encounter (principal)

== ENCOUNTER 2018-02-08 12:52 | Inpatient (IN) | payer OTHER, MEDICAID ==
--- NOTE | 2018-02-08 13:10 | EDPHY ---
HPI/HX/ROS/PE/MDM Narrative: CLINICAL IMPRESSION: Neurogenic bladder, dislodgement of chronic indwelling suprapubic catheter, leukocytosis and LLL pneumonia ASSESSMENT/PLAN: Patient is a 57-year-old male with a history of chronic indwelling catheter who presents after his Blas catheter was accidentally dislodged just prior to arrival. Patient is afebrile and nontoxic-appearing, he is in no acute distress on arrival. His neurological exam is nonfocal, on initial exam mildly lethargic- per his baseline reportedly from EMS who also evaluated him yesterday. Patient's vital signs were reviewed, no findings to suggest sepsis or serious bacterial illness. His abdomen was soft, mildly distended and tender in the suprapubic region without rebound or guarding. Suprapubic catheter site with residual suture, no active leaking, mildly hyperemic without evidence of cellulitis. Patient was evaluated by [facility] who knows him very well, concern for increased lethargy. Patient does take chronic opioids, patient unable to confirm how much he took today but states he never takes more than he is prescribed. CT head revealed no acute findings or evidence of acute intracranial hemorrhage, findings consistent with chronic MS. ECG revealed normal sinus rhythm, no evidence of ischemia. Chest x-ray revealed patchy infiltrate in the left lower lobe new from his previous exam suspicious for pneumonia. CBC revealed mild leukocytosis with a white blood cell count of 11. Patient did not meet SIRS or sepsis criteria, blood cultures were obtained as well as respiratory panel. Treated conservatively with Rocephin and azithromycin. CMP revealed mild hyperkalemia with a potassium of 5.3, otherwise grossly unremarkable. Tox screen negative for Tylenol, salicylate and alcohol; U tox still pending. On initial evaluation a bladder scan was performed which revealed 455 cc of urine, Dr. Olson with Urology was consulted and notified of patient's status. Patient is scheduled for surgical, permanent indwelling suprapubic catheter to be placed tomorrow. Dr. Olson recommends allowing patient to drain as he will do so through his urethra as he is still able to, he will have one of his partners evaluate the patient. The patient remained hemodynamically stable while the in the emergency department, denied any complaints. History of physical examination is consistent with dislodged indwelling suprapubic catheter secondary to neurogenic bladder as well as chest x-ray concerning for pneumonia. On repeat examination the patient is alert and oriented with no focal deficit, he denied any complaints and his abdomen remained soft with very mild tenderness in the suprapubic region; no evidence of a surgical abdomen. The patient will be admitted to the hospitalist service , I spoke directly with Dr. Munguia who will be admitting physician. [facility] called the Emergency Department back to notify us that Dr. Chapa will formally evaluate this patient. DIFFERENTIAL DX: Urinary retention, urinary outflow obstruction, infection; here for replacement of Blas catheter. ED PROCEDURES: ED COURSE: 1:40 p.m.: [facility] accessed, patient was seen and evaluated at [facility] yesterday for dislodgement of his suprapubic catheter. Multiple attempts were performed without success, patient ultimately sent to [facility] for replacement of indwelling suprapubic catheter. Dr. Olson paged at this time. In reviewing his records from yesterday he was also found to be hypoxic with an oxygen saturation of 82%, resolved when placed on his baseline 4 L. 2:05 p.m.: I spoke with Dr. Olson, patient is very well known to him. He is not available to come to the emergency department, options are to allow patient to leak as he can still do so from his urethra versus having 1 of his partners come to the emergency department and evaluate him. He will call his office and return our call with a formal plan. 3:00 p.m.. [facility] in to evaluate this patient, also well known to their service. Per [facility] sales development representative, patient does seem a bit more lethargic than his baseline today. Dr. Thornton at bedside. Will proceed with laboratory studies and admission. 4:20 p.m.: Patient will be admitted to the hospitalist service, spoke directly with Dr. Munguia who will admit this patient. 4:25 p.m.: Patient with mild leukocytosis of 11,000, chest x-ray did reveal patchy infiltrate concerning for pneumonia. He does not meet SIRS or sepsis criteria. Blood cultures were obtained as well as respiratory panel will treat with Rocephin and Zithromax. 4:30 p.m.: Dr. Chapa reportedly to evaluate patient. CHIEF COMPLAINT: Accidental dislodgement of Blas catheter HPI: Patient is a 57-year-old male with a significant history of multiple sclerosis who presents to the emergency department with complaints of accidental dislodgement of his indwelling Blas catheter. This happened just prior to arrival. Bedside punch Suprapubic catheter was placed 01/13/18 secondary to problems with his indwelling Blas catheter, performed by Dr. Olson at [facility]. Was seen and evaluated yesterday at [facility] for same, ultimately had to go to [facility] for replacement of his suprapubic indwelling catheter. Patient has plans for definitive surgical suprapubic catheter placement tomorrow with Dr. Olson. Patient denies any fever, chills, chest pain or shortness of breath. He is on 4 L of oxygen normally however reportedly frequently refuses it. He denies any abdominal pain. PMH: Chronic indwelling catheter, MS, neurogenic bladder, COPD, chronic respiratory failure on oxygen, bipolar, hypertension Pertinent Past Surgical History: Suprapubic catheter placement, hernia repair Family History: Noncontributory Social History: Denies smoking, alcohol or drug use REVIEW OF SYSTEMS: All other systems negative Constitutional: No fever, no chills, appetite change. Eyes: No discharge, vision change ENT: No sore throat, congestion, ear pain. Cardiovascular: No chest pain, no palpitations. Respiratory: No cough, no shortness of breath. Gastrointestinal: No abdominal pain, no vomiting, diarrhea. Genitourinary: Indwelling catheter dislodgement; No hematuria, dysuria, flank pain, pelvic pain Musculoskeletal: No back pain, joint swelling, joint pain, myalgias. Skin: No rashes, color change. Neurological: No headache, dizziness, weakness. PHYSICAL EXAM: General Appearance: Alert, oriented to place and place, chronically ill- appearing, unkempt appearance not toxic appearing. HEENT: Normocephalic, atraumatic. Oropharynx mildly dry is no erythema or exudates, no tonsillar hypertrophy or asymmetry. Eyes: PERRLA, no acute vision change, nystagmus, swelling, discharge, pain or photosensitivity. Conjunctiva pink, no pallor or injection Neck: Supple, nontender, no lymphadenopathy, no midline pain, FROM, no meningismus. Respiratory: There are no retractions, lungs are clear to auscultation. Cardiac: Regular rate and rhythm, no murmurs or gallops. Gastrointestinal: Abdomen is soft, nontender, bowel sounds normal, no masses/ hernia, no rigidity, guarding or focal peritoneal findings. There is a suprapubic tract in the right lower quadrant mildly erythematous, suture still in place. Neurological: Difficult to understand. Alert and oriented, no focal deficit noted. Skin: Warm, dry, no rashes, no nodules on palpation. Musculoskeletal: Extremities are symmetrical, full range of motion, no tenderness, deformity, swelling, or erythema. Psychiatric: Patient is oriented X 3, there is no agitation. MEDICAL DECISION MAKING: Patient was seen with Dr. Thornton, direct supervision. Diagnosis: Dislodgement of chronic indwelling suprapubic catheter, neurogenic bladder. Summary: See Assessment and Plan for summary of ED visit. Clinical tests: ordered / reviewed. Independent visualization of images, tracing, or specimens: No. Decision to obtain medical records or history from someone other than the patient: Yes, [place] Review / Summarize previous medical records: Yes Discussed patient with another provider: Yes, Dr. Thornton and [facility]- Dr. Olson. Patient Progress: Stable . (Tabitha Uriostegui) ED Course: : This patient was seen and examined by me. He is lethargic with mumbling speech, pupils 4mm and reactive, neuro exam is nonfocal, chest CTA, CV RRR, Abd soft, mild suprapubic distension. He presents after dislodgement of his suprapubic catheter. However more concerning is that he is quite lethargic. According to his home healthcare providers, this is a change for him as he is normally alert and is able to care for himself at home. However his ability to care for himself is somewhat tenuous at baseline and despite multiple attempts at placement in past, pt remains quite resistant. He uses a power chair at home and crawls around his home to move from place to place. Apparently he was up most of the night because of problems with his suprapubic catheter. He thinks that this is the reason for his lethargy today. However, he also took his usual narcotics which is likely contributing. We will do further evaluation for an acute medical issue. He will be admitted to the hospitalist service. CXR reveals pneumonia, does not meet SIRS criteria. Bld cx's drawn and Rocephin /Zithromax given. Pt now alert and talkative. (Shantel Thornton) MDM: EKG interpreted by me reveals normal sinus rhythm, rate 69, no ST or T segment changes. Interpretation: Normal EKG (Shantel Thornton) - Data Points Imaging Results: Imaging Impressions Chest X-Ray 02/08/18 15:21 Impression: Patchy infiltrate in the perihilar left lung and left lower lobe suspicious for pneumonia, new from prior study.. Head CT 02/08/18 15:21 Impression: 1. Stable moderate atrophy. 2. No hemorrhage, mass effect, or definite acute peripheral infarct. 3. Stable moderate nonspecific hypodensities in the white matter of bilateral cerebral hemispheres in this patient with history of MS If symptoms worsen, additional imaging may be necessary. Findings discussed with ONUR Hwagn at 16:03 hour, 02/08/2018. Laboratory Results: Laboratory Results 02/08/18 15:30 02/08/18 15:30 02/08/18 02/08/18 15:30 15:30 WBC 11.41 10^3/uL H 10^3/uL (3.80-9.50) RBC 5.35 10^6/uL 10^6/uL (4.40-6.38) Hgb 12.8 g/dL L g/dL (13.7-17.5) Hct 43.9 % % (40.0-51.0) MCV 82.1 fL fL (81.5-99.8) MCH 23.9 pg L pg (27.9-34.1) MCHC 29.2 g/dL L g/dL (32.4-36.7) RDW 18.9 % H % (11.5-15.2) Plt Count 246 10^3/uL 10^3/uL (150-400) MPV 9.8 fL fL (8.7-11.7) Neut % (Auto) 65.0 % % (39.3-74.2) Lymph % (Auto) 20.2 % % (15.0-45.0) Wilcox % (Auto) 8.7 % % (4.5-13.0) Eos % (Auto) 5.3 % % (0.6-7.6) Baso % (Auto) 0.4 % % (0.3-1.7) Nucleat RBC Rel Count 0.0 % % (0.0-0.2) Absolute Neuts (auto) 7.42 10^3/uL H 10^3/uL (1.70-6.50) Absolute Lymphs (auto) 2.31 10^3/uL 10^3/uL (1.00-3.00) Absolute Monos (auto) 0.99 10^3/uL H 10^3/uL (0.30-0.80) Absolute Eos (auto) 0.60 10^3/uL H 10^3/uL (0.03-0.40) Absolute Basos (auto) 0.05 10^3/uL 10^3/uL (0.02-0.10) Absolute Nucleated RBC 0.00 10^3/uL 10^3/uL (0-0.01) Immature Gran % 0.4 % % (0.0-1.1) Immature Gran # 0.04 10^3/uL 10^3/uL (0.00-0.10) Sodium 141 mEq/L mEq/L (135-145) Potassium 5.3 mEq/L H mEq/L (3.5-5.2) Chloride 106 mEq/L mEq/L (97-110) Carbon Dioxide 29 mEq/l mEq/l (22-31) Anion Gap 6 mEq/L mEq/L (6-14) BUN 41 mg/dL H mg/dL (7-23) Creatinine 1.3 mg/dL mg/dL (0.7-1.3) Estimated GFR 57 Glucose 102 mg/dL H mg/dL (70-100) Calcium 9.9 mg/dL mg/dL (8.5-10.4) Total Bilirubin 0.4 mg/dL mg/dL (0.1-1.4) AST 24 IU/L IU/L (17-59) ALT 15 IU/L L IU/L (21-72) Alkaline Phosphatase 98 IU/L IU/L (38-126) Total Protein 6.5 g/dL g/dL (6.3-8.2) Albumin 3.6 g/dL g/dL (3.5-5.0) Salicylates < 1.0 mg/dL L mg/dL (2.0-20.0) Acetaminophen < 10 mcg/mL L mcg/mL (10-30) Ethyl Alcohol < 10 mg/dL mg/dL (0-10) Medications Given: Discontinued Medications Azithromycin (Zithromax) 500 mg PO EDNOW ONE PRN Reason: Protocol Stop: 02/08/18 16:28 Last Admin: 02/08/18 16:57 Dose: 500 mg Ceftriaxone Sodium/Dextrose (Rocephin 1 Gm (Premix)) 50 mls @ 100 mls/hr IV EDNOW ONE PRN Reason: Protocol Stop: 02/08/18 16:55 Last Admin: 02/08/18 16:58 Dose: 50 mls General Time Seen by Provider: 02/08/18 12:58 Initial Vital Signs: Initial Vital Signs O2 Sat (%) 94 02/08/18 13:15 O2 Delivery Mode Nasal Cannula O2 (L/minute) 4 Allergies/Adverse Reactions: No Known Allergies Allergy (Verified 01/13/18 19:11) Home Medications: Medication Instructions Recorded Albuterol [Proventil Inhaler HFA 1 puffs IH BID 08/18/17 (*)] Amitriptyline HCl [Elavil 10 mg 10 mg PO HS 08/18/17 (*)] Cyclobenzaprine [Flexeril 10 MG 10 mg PO BID 08/18/17 (*)] Dalfampridine [AMPYRA] 10 mg PO BID 08/18/17 Diazepam [Valium 10 MG (*)] 10 mg PO BID 08/18/17 Folic Acid [Folic Acid 1 MG (*)] 1 mg PO DAILY 08/18/17 Gabapentin [Neurontin 400 MG (*)] 800 mg PO TID 08/18/17 Ibuprofen [Motrin (*)] 400 mg PO Q4HRS PRN 08/18/17 Interferon Beta-1A [Avonex] 30 mcg IM WE 08/18/17 Metoprolol Tartrate [Lopressor 50 75 mg PO BID 08/18/17 mg (*)] Pantoprazole Sodium [Protonix 40mg 40 mg PO DAILY 08/18/17 (*)] Polyethylene Glycol 3350 [Miralax 17 gm PO DAILY PRN 08/18/17 17 gm (*)] Testosterone IM [Testosterone 300 mg IM Q30D 08/18/17 100mg/ml IM inj (*)] ZOLPIDEM TARTRATE [Ambien CR 12.5 12.5 mg PO HS 08/18/17 mg] busPIRone [Buspar (*)] 30 mg PO BID 08/18/17 tiZANidine HCL [Zanaflex] 4 mg PO Q8H PRN 08/18/17 guaiFENesin [Mucinex 600 MG (*)] 600 mg PO BID tab.er 08/25/17 Acetaminophen [Pain Reliever] 1,000 mg PO Q6H PRN 02/08/18 Bupropion HCl [Bupropion HCl Sr] 150 mg PO BID 02/08/18 Hydrochlorothiazide [HCTZ (*)] 25 mg PO DAILY PRN 02/08/18 Nystatin Powder [Mycostatin Powder 1 ry TP BID 02/08/18 (RX)] OLANZapine [Zyprexa] 20 mg PO HS 02/08/18 Oxybutynin Chloride Xl [Ditropan 5 mg PO HS 02/08/18 Xl 5mg (*)] oxyCODONE HCL [Oxycontin] 60 mg PO BID 02/08/18 Departure - Departure Disposition: [facility] Acute Clinical Impression: Pneumonia Qualifiers: Pneumonia type: due to unspecified organism Laterality: bilateral Lung location : unspecified part of lung Qualified Code(s): J18.9 - Pneumonia, unspecified organism Condition: Fair
[2018-02-08] MEDS ORDERED: NS 1,000 ML IV SCH (15:15)
[2018-02-08 15:38] LABS: PLATELET COUNT 246 10^3/uL (150-400)
--- NOTE | 2018-02-08 16:23 | ASMTCMCOM ---
CM Note CM Note Notes: Patient with history of MS and neurogenic bladder presents to the ED with dislodgement of his suprapubic catheter. See ED report for details. Patient is known to YUMIKO Bettencourt who follows patient on an outpatient basis via [facility] . [facility] has contacted HH agency to inform of plans for admission. This CM has reviewed chart and history of this patient. Patient lives alone and has RN and PT care per [facility]. In addition, patient receives HCBS. Patient's manager medicare marketing at [facility] is Melania . I have spoken with Melania and she confirms that patient receives HCBS for "personal care" 5 days per week, for a total of 15 hours. Melania states that this can be evaluated and services increased if needed. CM to follow, communicate with HH and HCBS prn for discharge planning Date Signed: 02/08/2018 04:23 PM Electronically Signed By:Karely Helm RN
[2018-02-08] MEDS ORDERED: AZITHROMYCIN 250 MG TAB PO ONE (16:27)
[2018-02-08] MEDS ORDERED: ACETAMINOPHEN 325 MG TAB PO PRN (16:35)
[2018-02-08] MEDS ORDERED: ONDANSETRON DISINTEGRATING 4 MG TAB PO PRN (16:35)
[2018-02-08] MEDS ORDERED: HYDROCHLOROTHIAZIDE 25 MG TAB PO PRN (19:19)
[2018-02-08] MEDS ORDERED: POLYETHYLENE GLYCOL 3350 17 GM PKT PO PRN (19:19)
--- NOTE | 2018-02-08 19:27 | PDGENHP ---
History and Physical - Chief Complaint dislodged spc - History of Present Illness 57 yo M with PMH of MS with associated dysarthria, urinary retention and gait instability presenting after inadvertently dislodging his suprapubic catheter today. Patient had originally dislodged his SPC yesterday and went to [facility] for evaluation. They were unable to place a feliz despite several attemps and he was discharged to / with Dr. Olson in his office. Yesterday, Dr. Olson was able to place a 'punch' SPC with plans to follow up for an operative placement of a more permanent SPC tomorrow. Unfortunately again, prior to arrival here, patient again dislodged this catheter. Patient is somewhat difficult to understand due to the chronic dysarthria associated with his MS but he is also noted to have extensive cuts and bilateral soft tissue swelling below his knees which he states are due to frequently falling out of his wheelchair and needing to crawl about on the ground in order to get back in. He states he is upset at the moment because his dog is lost but otherwise had no acute complaints other then some discomfort around having his catheter out. He denied fevers or chills. He notes that he is leaking urine particularly whenever he has a bowel movement, but he is unable to intentionally drain his bladder. History Information - Allergies/Home Medication List Allergies/Adverse Reactions: No Known Allergies Allergy (Verified 01/13/18 19:11) Home Medications: Albuterol [Proventil Inhaler HFA (*)] 1 puffs IH BID 08/18/17 [Last Taken Unknown] Amitriptyline HCl [Elavil 10 mg (*)] 10 mg PO HS 08/18/17 [Last Taken Unknown] Cyclobenzaprine [Flexeril 10 MG (*)] 10 mg PO BID 08/18/17 [Last Taken Unknown] Dalfampridine [AMPYRA] 10 mg PO BID 08/18/17 [Last Taken Unknown] Diazepam [Valium 10 MG (*)] 10 mg PO BID 08/18/17 [Last Taken Unknown] Folic Acid [Folic Acid 1 MG (*)] 1 mg PO DAILY 08/18/17 [Last Taken Unknown] Gabapentin [Neurontin 400 MG (*)] 800 mg PO TID 08/18/17 [Last Taken Unknown] Ibuprofen [Motrin (*)] 400 mg PO Q4HRS PRN 08/18/17 [Last Taken Unknown] Interferon Beta-1A [Avonex] 30 mcg IM WE 08/18/17 [Last Taken Unknown] Metoprolol Tartrate [Lopressor 50 mg (*)] 75 mg PO BID 08/18/17 [Last Taken Unknown] Pantoprazole Sodium [Protonix 40mg (*)] 40 mg PO DAILY 08/18/17 [Last Taken Unknown] Polyethylene Glycol 3350 [Miralax 17 gm (*)] 17 gm PO DAILY PRN 08/18/17 [Last Taken Unknown] Testosterone IM [Testosterone 100mg/ml IM inj (*)] 300 mg IM Q30D 08/18/17 [ Last Taken Unknown] ZOLPIDEM TARTRATE [Ambien CR 12.5 mg] 12.5 mg PO HS 08/18/17 [Last Taken Unknown ] busPIRone [Buspar (*)] 30 mg PO BID 08/18/17 [Last Taken Unknown] tiZANidine HCL [Zanaflex] 4 mg PO Q8H PRN 08/18/17 [Last Taken Unknown] Acetaminophen [Pain Reliever] 1,000 mg PO Q6H PRN 02/08/18 [Last Taken Unknown] Bupropion HCl [Bupropion HCl Sr] 150 mg PO BID 02/08/18 [Last Taken Unknown] Hydrochlorothiazide [HCTZ (*)] 25 mg PO DAILY PRN 02/08/18 [Last Taken Unknown] Nystatin Powder [Mycostatin Powder (RX)] 1 ry TP BID 02/08/18 [Last Taken Unknown] OLANZapine [Zyprexa] 20 mg PO HS 02/08/18 [Last Taken Unknown] Oxybutynin Chloride Xl [Ditropan Xl 5mg (*)] 5 mg PO HS 02/08/18 [Last Taken Unknown] oxyCODONE HCL [Oxycontin] 60 mg PO BID 02/08/18 [Last Taken Unknown] I have personally reviewed and updated: family history, medical history, social history, surgical history - Past Medical History COPD, hypertension, psychiatric history (bipolar disorder) Additional medical history: MS--advanced with associated dysarthria, urinary retention and gait instability. chronic pain with continuous opiate use and dependency. pressure injury. chronic hypoxic respiratory failure - Surgical History Reports: hernia repair Additional surgical history: suprapubic catheter. knee. shoulder - Social History Smoking Status: Former smoker Alcohol Use: None Drug Use: None Additional social history: lives alone Review of Systems Review of Systems: ROS: 10pt was reviewed & negative except for what was stated in HPI & below Physical Exam Physical Exam: Temp Pulse Resp BP Pulse Ox 36.5 C 76 18 122/69 H 5 L 02/08/18 18:45 02/08/18 17:53 02/08/18 18:45 02/08/18 18:45 02/08/18 18:45 O2 (L/minute) 5 Constitutional: no apparent distress, chronically ill appearing, unkempt Eyes: PERRL, anicteric sclera Ears, Nose, Mouth, Throat: moist mucous membranes, hearing normal Cardiovascular: regular rate and rhythym, no murmur, rub, or gallop Respiratory: no respiratory distress, no rales or rhonchi Gastrointestinal: normoactive bowel sounds, soft, non-tender abdomen Genitourinary: no bladder tenderness Skin: warm, abrasion, erythema Musculoskeletal: no muscle tenderness, No full muscle strength Neurologic: AAOx3 Psychiatric: interacting appropriately, not anxious, not encephalopathic Lab Data & Imaging Review 02/08/18 15:30 02/08/18 15:30 WBC 11.41 10^3/uL (3.80-9.50) H 02/08/18 15:30 RBC 5.35 10^6/uL (4.40-6.38) 02/08/18 15:30 Hgb 12.8 g/dL (13.7-17.5) L 02/08/18 15:30 Hct 43.9 % (40.0-51.0) 02/08/18 15:30 MCV 82.1 fL (81.5-99.8) 02/08/18 15:30 MCH 23.9 pg (27.9-34.1) L 02/08/18 15:30 MCHC 29.2 g/dL (32.4-36.7) L 02/08/18 15:30 RDW 18.9 % (11.5-15.2) H 02/08/18 15:30 Plt Count 246 10^3/uL (150-400) 02/08/18 15:30 MPV 9.8 fL (8.7-11.7) 02/08/18 15:30 Neut % (Auto) 65.0 % (39.3-74.2) 02/08/18 15:30 Lymph % (Auto) 20.2 % (15.0-45.0) 02/08/18 15:30 [place] % (Auto) 8.7 % (4.5-13.0) 02/08/18 15:30 Eos % (Auto) 5.3 % (0.6-7.6) 02/08/18 15:30 Baso % (Auto) 0.4 % (0.3-1.7) 02/08/18 15:30 Nucleat RBC Rel Count 0.0 % (0.0-0.2) 02/08/18 15:30 Absolute Neuts (auto) 7.42 10^3/uL (1.70-6.50) H 02/08/18 15:30 Absolute Lymphs (auto) 2.31 10^3/uL (1.00-3.00) 02/08/18 15:30 Absolute Monos (auto) 0.99 10^3/uL (0.30-0.80) H 02/08/18 15:30 Absolute Eos (auto) 0.60 10^3/uL (0.03-0.40) H 02/08/18 15:30 Absolute Basos (auto) 0.05 10^3/uL (0.02-0.10) 02/08/18 15:30 Absolute Nucleated RBC 0.00 10^3/uL (0-0.01) 02/08/18 15:30 Immature Gran % 0.4 % (0.0-1.1) 02/08/18 15:30 Immature Gran # 0.04 10^3/uL (0.00-0.10) 02/08/18 15:30 Sodium 141 mEq/L (135-145) 02/08/18 15:30 Potassium 5.3 mEq/L (3.5-5.2) H 02/08/18 15:30 Chloride 106 mEq/L (97-110) 02/08/18 15:30 Carbon Dioxide 29 mEq/l (22-31) 02/08/18 15:30 Anion Gap 6 mEq/L (6-14) 02/08/18 15:30 BUN 41 mg/dL (7-23) H 02/08/18 15:30 Creatinine 1.3 mg/dL (0.7-1.3) 02/08/18 15:30 Estimated GFR 57 02/08/18 15:30 Glucose 102 mg/dL (70-100) H 02/08/18 15:30 Calcium 9.9 mg/dL (8.5-10.4) 02/08/18 15:30 Total Bilirubin 0.4 mg/dL (0.1-1.4) 02/08/18 15:30 AST 24 IU/L (17-59) 02/08/18 15:30 ALT 15 IU/L (21-72) L 02/08/18 15:30 Alkaline Phosphatase 98 IU/L (38-126) 02/08/18 15:30 Total Protein 6.5 g/dL (6.3-8.2) 02/08/18 15:30 Albumin 3.6 g/dL (3.5-5.0) 02/08/18 15:30 Salicylates < 1.0 mg/dL (2.0-20.0) L 02/08/18 15:30 Acetaminophen < 10 mcg/mL (10-30) L 02/08/18 15:30 Ethyl Alcohol < 10 mg/dL (0-10) 02/08/18 15:30 Visualized and Interpreted Chest x-ray results: Yes Chest X-Ray results: infiltrate (LLL, new from prior) Visualized and Interpreted imaging results: Yes Interpretation: head CT: nothing acute, findings c/w MS Visualized and Interpreted EKG results: Yes EKG Interpretation: Positive for: normal sinsus rhythm Assessment & Plan Assessment: 57 yo M with advanced MS and chronic urinary retention presenting after inadvertent dislodgement of suprapubic catheter with also acute on chronic resp failure and LLL PNA # chronic urinary retention: with inadvertent dislodgement of temporary suprapubic catheter, discussed with urology who is aware and will take patient to OR In am for SPC placement. They felt ok to leave out overnight and allow him to leak, no IVF even when he is NPO tonight # acute on chronic hypoxic respiratory failure: requiring 4-5L to maintain o2 sats in the mid 90s, was noted to be 82% on RA yesterday at [facility], patient was discharged last hospitalization with oxygen following admission for aspiration pna and per outpatient reports has chronic hypoxia that he refuses o2 for, baseline unknown. Acute hypoxia 2/2 next # LLL PNA: aspiration versus CAP, he has prior hx of aspiration pna and with chronic dysarthria is at high risk for aspiration, started on ctx/azithro which will continue for now, will ask for RT consult in am # bilateral lower extremity wounds: with bilateral significant soft tissue swelling below the knees and multiple areas of abrasions and erythema in the setting of patient reportedly crawling around on the ground. Patient states the swelling has been there for some time and is not tender, will monitor for now, consider imaging but does not appear c/w abscess currently with no erythema. Will ask wound care to eval. # MS: advanced, patient currently living independently but does not appear to be thriving currently, will ask pt/ot/cm to get involved # chronic pain with continuous opiate use and dependency: continue home regimen # leukocytosis: without other sirs criteria, will trend # IP status, will require > 48 hours stay for eval/mgmt of above Patient new to my care. Old records reviewed and summarized as above. Care plan reviewed with ER doctor and Dr. Chapa as above.
[2018-02-08] MEDS: DIAZEPAM 5 MG TAB PO SCH (20:45)
[2018-02-08] MEDS: GABAPENTIN 400 MG CAP PO SCH (20:45)
[2018-02-08] MEDS: oxyCODONE CR 30 MG TAB PO SCH (20:45)
[2018-02-08] MEDS: buPROPion SR 150 MG TAB PO SCH (20:45)
[2018-02-08] MEDS: guaiFENesin 600 MG TAB.ER PO SCH (20:46)
[2018-02-08] MEDS: CYCLOBENZAPRINE 10 MG TAB PO SCH (20:46)
[2018-02-08] MEDS: METOPROLOL TARTRATE 50 MG TAB PO SCH (20:46)
[2018-02-08] MEDS: OXYBUTYNIN 5 MG EXT REL TAB PO SCH (20:47)
[2018-02-08] MEDS: busPIRone 15 MG TAB PO SCH (20:47)
[2018-02-08] MEDS: AMITRIPTYLINE HCL 10 MG TAB PO SCH (20:48)
[2018-02-08] MEDS: ALBUTEROL 60 PUFFS/8 GM MDI IH SCH (20:48)
[2018-02-08] MEDS: OLANZapine 10 MG TAB PO SCH (20:48)
[2018-02-08] MEDS: Dalfampridine [Ampyra] 10 MG PO SCH (21:00)
[2018-02-08] MEDS: ZOLPIDEM TARTRATE 5 MG TAB PO SCH (21:00)
--- NOTE | 2018-02-08 21:15 | CPEKG ---
Test Reason : OPEN Blood Pressure : / mmHG Vent. Rate : 069 BPM Atrial Rate : 070 BPM P-R Int : 191 ms QRS Dur : 087 ms QT Int : 410 ms P-R-T Axes : 010 -05 054 degrees QTc Int : 440 ms Sinus rhythm Confirmed by Shantel Thornton ([id number]) on 02/08/2018 9:14:37 PM Referred By: Confirmed By:Shantel Thornton
[2018-02-08] MEDS ORDERED: LIDOCAINE 2% JELLY 20 ML (UROJECT) UR ONE (23:02)
[2018-02-09] MEDS ORDERED: ALBUTEROL 3 ML DEYVIAL IH PRN (00:50)
[2018-02-09] MEDS: NYSTATIN POWDER 15 GM BTL TP SCH ×3 (03:13→22:17)
--- NOTE | 2018-02-09 05:29 | GCON ---
DATE OF CONSULTATION: 02/08/2018 REASON FOR CONSULTATION: I have been asked to see this gentleman in the emergency room because of a neurogenic bladder and having his suprapubic catheter dislodge and be removed. HISTORY OF PRESENT ILLNESS: By history this is a gentleman who has had a suprapubic catheter and has been managed by our office with multiple physicians, and he has most recently had a suprapubic asia ter placed on 02/07/2018, and he says the catheter came in the morning, and he is being seen in the e mergency room for assessment. 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 He has had a history of COPD, chronic respiratory failure. PAST SURGICAL HISTORY: Hernia, knee, and shoulder surgery, and a suprapubic catheter placed in the p ast. MEDICATIONS: Are well documented in the chart. ALLERGIES: None. FAMILY HISTORY: Hypertension. SOCIAL HISTORY: He is a nondrinker, former smoker. PHYSICAL EXAMINATION: GENERAL: Overweight, speech articulation is very poor. CHEST: Unlabored amilcar athing. HEART: Regular rate and rhythm. ABDOMEN: Obesity is noted. His suprapubic tract site ry ears to be closed and not leaking. At the present time discussed with the hospitalist, the emergency room nurse, and communication with Dr. Olson. The plan will be to admit him, limit his fluids over night, and he is already scheduled for general anesthesia and placement of a formal suprapubic cathet er tomorrow in the operating room. That will be scheduled, and the then the hospitalist agreed to do ing the admission, because of the concern that he may need further care, assessment, and placement af ter this procedure. /[id number]/MODL
[2018-02-09 05:43] LABS: PLATELET COUNT 219 10^3/uL (150-400)
[2018-02-09] MEDS ORDERED: AZITHROMYCIN IV 500 MG in NS 250 ML IV SCH (09:00)
[2018-02-09] MEDS: ALBUTEROL 60 PUFFS/8 GM MDI IH SCH ×2 (09:34→20:19)
[2018-02-09] MEDS: GABAPENTIN 400 MG CAP PO SCH ×3 (09:41→22:12)
[2018-02-09] MEDS: DIAZEPAM 5 MG TAB PO SCH ×2 (09:41→22:11)
[2018-02-09] MEDS: oxyCODONE CR 30 MG TAB PO SCH ×2 (09:41→22:09)
[2018-02-09] MEDS: CYCLOBENZAPRINE 10 MG TAB PO SCH ×2 (09:42→22:14)
[2018-02-09] MEDS: FOLIC ACID 1 MG TAB PO SCH (09:42)
[2018-02-09] MEDS: buPROPion SR 150 MG TAB PO SCH ×2 (09:42→22:11)
[2018-02-09] MEDS: PANTOPRAZOLE SODIUM 40 MG TAB PO SCH (09:42)
[2018-02-09] MEDS: METOPROLOL TARTRATE 50 MG TAB PO SCH ×2 (09:42→22:15)
[2018-02-09] MEDS: guaiFENesin 600 MG TAB.ER PO SCH ×2 (09:42→22:11)
[2018-02-09] MEDS: busPIRone 15 MG TAB PO SCH ×2 (09:54→22:13)
--- NOTE | 2018-02-09 10:09 | ASMTCMCOM ---
CM Note CM Note Notes: Chart reviewed for discharge planning purposes, the patient has outpatient supportive services as outlined below. Likely to discharge with resumption of services when medically cleared for discharge. Plan: HHC and HCBC when medically cleared. ic bladder presents to the ED with dislodgement of his suprapubic catheter. See ED report for details. Patient is known to YUMIKO Bettencourt who follows patient on an outpatient basis via [facility] . [facility] has contacted HH agency to inform of plans for admission. This CM has reviewed chart and history of this patient. Patient lives alone and has RN and PT care per [facility] . In addition, patient receives HCBS. Patient's primary care sales representative at [facility] is Melania . I have spoken with Melania and she confirms that patient receives HCBS for "personal care" 5 days per week, for a total of 15 hours. Melania states that this can be evaluated and services increased if needed. Date Signed: 02/09/2018 10:07 AM Electronically Signed By:Julisa Magallanes RN
--- NOTE | 2018-02-09 10:15 | HOSPPROG ---
Hospitalist Progress Note Assessment/Plan: 57 yo M with advanced MS and chronic urinary retention presented after inadvertent dislodgement of suprapubic catheter. Also found to be hypoxic with infiltrate on CXR. 1. Acute hypoxemic resp failure: Resp distress improved, still requiring 4-5L. Driven by pna, obstructive lung dz. - Antibiotics, schedule bronchodilators, wean O2 - This is almost certainly a chronic issue but he has refused supplemental O2 in the past 2. Left lower lobe pneumonia: Likely aspiration. - Cont CTX, dc azithromycin 3. Chronic urinary retention: r/t MS. - Plan for OR today for suprapubic cath placement with urology. Will have general anesthesia 4. Bilateral LE wounds: due to him crawling around at home. do not appear infected - Wound care 5. Advanced MS: Home meds. Currently living independently which is unsafe. He has refused SNF/inpatient rehab in the past. - PT/OT 6. Chronic pain with opioid dependency: Home meds 7. Anemia: No e/o bleeding. H/H slightly lower than prior. Monitor. 8. SUELLEN: Resolved. Diet: NPO Code: full Dispo: Remain inpatient Subjective: Complaining of lower abdominal pain. No fevers. Whole body hurts. Coughing up green sputum. Objective: Vital Signs Temp Pulse Resp BP Pulse Ox 36.8 C 81 17 124/77 H 92 02/09/18 08:54 02/09/18 09:42 02/09/18 09:34 02/09/18 09:42 02/09/18 09:34 Microbiology 02/08/18 17:50 Respiratory Panel (PCR) - Final Nasal, Sinus - Swab No Organism Detected By Pcr Laboratory Results 02/09/18 04:57 02/09/18 04:57 02/08/18 02/09/18 02/10/18 05:59 05:59 05:59 Intake Total 300 Balance 300 - Physical Exam Constitutional: no apparent distress, obese Eyes: PERRL, anicteric sclera, EOMI Ears, Nose, Mouth, Throat: moist mucous membranes, hearing normal, ears appear normal, no oral mucosal ulcers Cardiovascular: regular rate and rhythym, no murmur, rub, or gallop Respiratory: no respiratory distress, reduced air movement, expiratory wheeze Gastrointestinal: normoactive bowel sounds, tenderness (suprapubic region) Genitourinary: other (suprapubic incision site with mild surrounding erythema, suture in place, no catheter) Skin: other (numerous abrasions over legs, fluid colletions just below knees) Neurologic: AAOx3, other (dysarthria) Psychiatric: agitated ICD10 Worksheet Patient Problems: Problems Problem Status Onset Pneumonia Acute Sepsis Acute
[2018-02-09] MEDS: Dalfampridine [Ampyra] 10 MG PO SCH (10:33)
--- NOTE | 2018-02-09 11:22 | PDMN ---
Medical Necessity Medical necessity: Pt meet IP criteria as of 02/08/18 per MD and MCG [id number] ( pneumonia); est los > 2 mn for ongoing tx of LLL pneumonia with acute on chronic respiratory failure causing hypoxemia and leukocytosis in a wheelchair dependent pt with MS, chronic urinary retention, and wounds to BLE; requiring IV ABX, respiratory support, urology consult with planned replacement of suprapubic catheter, therapies, and wound care consult.
--- NOTE | 2018-02-09 12:10 | ASMTCMCOM ---
CM Note CM Note Notes: Patient plan of care reviewed in rounds. He is end stage MS and questions surround his ability to safely be at home. Questionable aspiration pneumonia. Speech evaluation pending. Per Dr. Regan patient has refused SNF in the past. Palliative care consult ordered. Order for [facility] placed in allscripts. Plan: TBD Date Signed: 02/09/2018 12:09 PM Electronically Signed By:Julisa Magallanes RN
[2018-02-09] MEDS: AMPICILLIN/SULBACTAM 3 GM in NS 100 ML IV SCH ×3 (12:38→23:59)
[2018-02-09] MEDS ORDERED: DEXAMETHASONE 4 MG/ML VIAL ONE (12:47)
[2018-02-09] MEDS ORDERED: ONDANSETRON 4 MG/2 ML VIAL ONE (12:47)
[2018-02-09] MEDS ORDERED: LIDOCAINE 2% 5 ML SDV ONE (12:47)
[2018-02-09] MEDS ORDERED: fentaNYL 100 MCG/2 ML INJ ONE ×2 (12:47→15:06)
[2018-02-09] MEDS ORDERED: PROPOFOL 200 MG/20 ML VIAL ONE (12:48)
[2018-02-09] MEDS ORDERED: LR 1,000 ML IV ONE (13:44)
--- NOTE | 2018-02-09 13:45 | WOCRNPDOC ---
AMIRAH Advanced Assessment Note - Skin Integrity Problem, Advanced Assess Upper Medial Back Dressing Type: Allevyn Life Dressing Description: Clean/Dry, Intact Closure Description: Approximated Exudate Amount: None Integumentary Issue Intervention: Visualized Under Dressing Court Wound Tissue: Intact Court Wound Swelling: None Wound Bed Color: Orchid (scarred) Site Measurement - Head-to-Toe Length X Width X Depth (cm): [id number] Skin Integrity Problem Comment: Patient rolled to his left side with assist from ROSIO Stanton and HERBERTH Luna. Orchid, blanchable tissue to the patient's upper, middle back noted by PIPP study group and they placed an allevyn. Skin underneath allevyn is intact but appears scarred. Patient unable to explain how he may have come to have a now healed wound in this area but I suspect it may be related to the patient's wheelchair and his positioning in the chair. Allevyn replaced for now. As there is not currently an open wound to this area, wound care will not continue to follow. Right Proximal Buttock Pressure Injury Dressing Type: Open to Air Exudate Amount: None Court Wound Tissue: Erythema Wound Bed Color: Purple, Red Wound Edges: Well Defined Site Measurement - Head-to-Toe Length X Width X Depth (cm): [id number] Pressure Injury Stage: Deep Tissue Injury (DTI) Pressure Injury Present on Admit: Yes Skin Integrity Problem Comment: DTI, present on admission. This wound is likely of the same etiology as on the left proximal buttock. This RN suspects skin injury caused by pressure from sitting on toilet but patient unable to verify. Left Proximal Buttock Pressure Injury Dressing Type: Open to Air Closure Description: Approximated Court Wound Tissue: Erythema, Painful/Tender Wound Bed Color: Purple, Red Wound Edges: Well Defined Site Measurement - Head-to-Toe Length X Width X Depth (cm): [id number] Pressure Injury Stage: Deep Tissue Injury (DTI) Pressure Injury Present on Admit: Yes Skin Integrity Problem Comment: Patient rolled to the left with assist from ROSIO Stanton and HERBERTH Luna. Patient actively stooling so I assisted with clean up. After cleaning the patient's skin, there is an obvious area of DTI that spans both proximal buttocks. Patient is unable to help determine the cause of the injury but does tell me that he "sits in his chair a lot". Given the location and linear nature of the wound, I suspect it is from a toilet ring. Skin is currently intact. Given the patient's frequent incontinence, I won't write for covering the area at this point. Please notify wound care LIZA if wound opens. Otherwise, wound care will round again on this wound early next week. Left Lateral Ankle Pressure Injury Dressing Type: Xinguodu Dressing Description: Clean/Dry, Intact Closure Description: Not Approximated Exudate Amount: None Integumentary Issue Intervention: Hydrogel Applied Court Wound Tissue: Blanching, Erythema, Scarred, Calloused, Painful/Tender Court Wound Swelling: Mild Wound Bed Color: Brown Wound Bed Constitution: Scab Wound Edges: Attached, Well Defined Site Measurement - Head-to-Toe Length X Width X Depth (cm): [id number] Pressure Injury Stage: Unstageable Pressure Injury Present on Admit: Yes Skin Integrity Problem Comment: Patient with red, blanching, calloused, scabbed , wound to left lateral ankle. Patient states that to get around his home he often crawls and develops wounds. This wound appears chronic in nature given the callous around the wound bed. I also suspect pressure as a component involved. Wound care will continue to follow.
[2018-02-09] MEDS ORDERED: MIDAZOLAM 2 MG/2 ML VIAL ONE (13:47)
[2018-02-09] MEDS ORDERED: ePHEDrine SULFATE 25 MG/5 ML SYR ONE (14:47)
[2018-02-09] MEDS ORDERED: BACITRACIN ZINC 14.2 GM OINTTUBE TP ONE (15:18)
--- NOTE | 2018-02-09 15:45 | POSTOPPROG ---
Post Op Note Date of Operation: 02/10/18 Surgeon: Jalyn Olson (# [id number]) Anesthesia: GET(General Endotracheal) Pre-op Diagnosis: Urinary retention, severe urethral stricture disease Post-op Diagnosis: Urinary retention, severe urethral stricture disease Procedure: DVIU w/ holmium laser, formal SP tube placement Findings: See op note Inf/Abcess present in the surg proc area at time of surgery?: No EBL: Minimal Complications: None Drains: Other (24 Fr. SP tube) Specimen(s): None
[2018-02-09] MEDS: ZOLPIDEM TARTRATE 5 MG TAB PO SCH (21:00)
[2018-02-09] MEDS: AMITRIPTYLINE HCL 10 MG TAB PO SCH (22:10)
[2018-02-09] MEDS: OLANZapine 10 MG TAB PO SCH (22:13)
[2018-02-09] MEDS: OXYBUTYNIN 5 MG EXT REL TAB PO SCH (22:14)
[2018-02-10] MEDS: Dalfampridine [Ampyra] 10 MG PO SCH ×3 (01:20→22:52)
[2018-02-10] MEDS: AMPICILLIN/SULBACTAM 3 GM in NS 100 ML IV SCH ×3 (06:12→17:37)
[2018-02-10] MEDS: oxyCODONE CR 30 MG TAB PO SCH ×2 (09:12→21:49)
[2018-02-10] MEDS: buPROPion SR 150 MG TAB PO SCH ×2 (09:13→20:35)
[2018-02-10] MEDS: FOLIC ACID 1 MG TAB PO SCH (09:13)
[2018-02-10] MEDS: CYCLOBENZAPRINE 10 MG TAB PO SCH ×2 (09:14→22:52)
[2018-02-10] MEDS: DIAZEPAM 5 MG TAB PO SCH ×2 (09:14→22:52)
[2018-02-10] MEDS: PANTOPRAZOLE SODIUM 40 MG TAB PO SCH (09:14)
[2018-02-10] MEDS: guaiFENesin 600 MG TAB.ER PO SCH ×2 (09:14→20:34)
[2018-02-10] MEDS: GABAPENTIN 400 MG CAP PO SCH ×4 (09:14→20:38)
[2018-02-10] MEDS: busPIRone 15 MG TAB PO SCH ×2 (09:14→20:35)
[2018-02-10] MEDS: METOPROLOL TARTRATE 50 MG TAB PO SCH ×2 (09:19→20:34)
[2018-02-10] MEDS: NYSTATIN POWDER 15 GM BTL TP SCH ×2 (09:21→20:43)
[2018-02-10] MEDS: ALBUTEROL 60 PUFFS/8 GM MDI IH SCH ×2 (09:22→21:13)
[2018-02-10] MEDS ORDERED: MAGNESIUM HYDROXIDE 30 ML UDCUP PO PRN (09:52)
[2018-02-10] MEDS ORDERED: BISACODYL 10 MG SUPP PR PRN (09:52)
[2018-02-10] MEDS ORDERED: POLYETHYLENE GLYCOL 3350 17 GM PKT PO PRN (09:52)
[2018-02-10] MEDS ORDERED: LACTULOSE 20 GM/30 ML UDCUP PO PRN (09:52)
[2018-02-10] MEDS: ONDANSETRON 4 MG/2 ML VIAL IVP PRN (10:04)
--- NOTE | 2018-02-10 11:56 | GOP ---
DATE OF OPERATION: 02/09/2018 SURGEON: Jalyn Olson MD ANESTHESIA: General endotracheal. PREOPERATIVE DIAGNOSIS: 1. Urinary retention due to neurogenic bladder from multiple sclerosis. 2. Severe anterior urethral stricture disease. POSTOPERATIVE DIAGNOSIS: 1. Urinary retention due to neurogenic bladder from multiple sclerosis. 2. Severe anterior urethral stricture disease. PROCEDURE PERFORMED: 1. Cystourethroscopy, direct vision internal urethrotomy with holmium laser. 2. Formal suprapubic catheter placement. FINDINGS: Severe focal urethral stricture disease involving the proximal pendulous urethra. SPECIMENS: None. ESTIMATED BLOOD LOSS: Minimal. INDICATIONS: This gentleman has had fairly long-standing urinary retention and is unable to be catheterized urethrally due to severe urethral stricture disease. He has recently had temporary suprapubic catheter placement, but these have been pulled out by the patient on at least 2 occasions. He presents for formal suprapubic catheter placement intraoperatively at this time. The indications for the procedure for the procedures as well as potential risks and complications were discussed with the patient preoperatively. He appeared to understand, his questions were answered, and he wished to proceed. Written informed surgical consent was, thereafter, obtained. DESCRIPTION OF PROCEDURE: The patient was brought to the operative room and administered general endotracheal anesthesia. He was carefully placed in the low lithotomy position on the operating room table utilizing Rao stirrups. The genital area and lower abdomen were sterilely prepped and draped in standard fashion. I initially performed cystoscopy with a 30-degree lens through a 22-Luxembourger sheath. Anterior urethra was normal until the proximal pendulous urethra was reached, at which point there was severe stricturing down to approximately 5-Luxembourger. In order to gain access to the bladder to confirm proper placement of the suprapubic tube, I decided to incise the stricture to allow for transurethral access for these reasons. Therefore, a 5-Luxembourger open- ended ureteral catheter was passed through the cystoscope, followed by insertion of a 550 micron holmium laser fiber. The laser fiber was used to perform radial incisions through the strictured tissue. This was a focal stricture that measured approximately 1 cm in length. Afterwards, I was able to advance the cystoscope into the bladder. The prostate was not significantly obstructing. The bladder was grossly full of urine. The bladder was heavily trabeculated. There were no obvious areas of abnormal erythema, tumors, nor foreign bodies appreciated within the bladder. There was some typical post- catheterization mucosal inflammatory changes. Ureteral orifices were normal in regards to shape and position along the trigone. I then removed the cystoscope, after filling the bladder with irrigation fluid, then inserted the Lowsley retractor. I used the Lowsley to tent the anterior aspect of the bladder in the abdominal midline above the pubic symphysis. I then made an incision with a scalpel and cut down to the Lowsley with electrocautery. The Lowsley was then delivered through the abdominal incision. A 24-Luxembourger 3-way Blas catheter with a 30 cc balloon was then attached to the Lowsley and pulled through the bladder, then brought out through the urethra and the urethral meatus. The Lowsley was then disconnected from the catheter and the catheter was then pushed back into the bladder. Once proper confirmation of placement within the bladder was confirmed cystoscopically, the catheter balloon was inflated with 45 cc of sterile water. The catheter was then secured to the skin with an 0 silk suture. This completed the operation. The cystoscope was then removed and the wound around the SP site was dressed with antibiotic ointment followed by 4x4s and tape. The catheter was connected to bag drainage. The patient was awakened, extubated, transferred to his bed, and then taken to the recovery room. He tolerated the procedure well overall. COMPLICATIONS: None. DISPOSITION: He was transferred to the recovery room in stable condition. He will need to return to the office in approximately 1 month for replacement of his suprapubic catheter. /[id number]/MODL MTDD
[2018-02-10] MEDS: PROMETHAZINE HCL 25 MG/ML INJ IVP PRN (12:16)
--- NOTE | 2018-02-10 12:27 | HOSPPROG ---
Hospitalist Progress Note Assessment/Plan: 57 yo M with advanced MS and chronic urinary retention presented after inadvertent dislodgement of suprapubic catheter. Also found to be hypoxic with infiltrate on CXR. 1. Acute hypoxemic resp failure: Resp distress improved, still requiring 4-5L. Driven by pna, obstructive lung dz. - Antibiotics, schedule bronchodilators, wean O2 - This is almost certainly a chronic issue but he has refused supplemental O2 in the past 2. Left lower lobe aspiration pneumonia - Cont IV unasyn, day 2 - IN PROCESSING INSTRUCTOR evaluation 3. Coag negative staph + blood culture: / bottles strongly suggests contamination, especially given his clinical stability. - Repeat blood cultures tomorrow, no change in abx for now 3. Chronic urinary retention: r/t MS. - S/p formal suprapubic cath placement in OR by Dr Olson on 02/09 4. Bilateral LE wounds: due to him crawling around at home. Do not appear infected - Wound care 5. Advanced MS: Home meds. Currently living independently which is unsafe. He has refused SNF/inpatient rehab in the past. - PT/OT 6. Chronic pain with opioid dependency: Home meds 7. Anemia: No e/o bleeding. H/H slightly lower than prior. Monitor. 8. SUELLEN: Resolved. Diet: regular Code: full Dispo: Remain inpatient for management of resp issues. Await therapy recs. ADD likely in 1-3 days. Subjective: Feeling better than yesterday. Breathing feels slightly labored. Pain controlled. No fevers Objective: Vital Signs Temp Pulse Resp BP Pulse Ox 36.6 C 86 20 140/84 H 91 L 02/10/18 07:20 02/10/18 07:20 02/10/18 07:20 02/10/18 07:20 02/10/18 07:20 Microbiology 02/08/18 18:18 Blood Panel (PCR) - Final Blood Staph Coagulase Negative Laboratory Results 02/10/18 04:50 02/10/18 04:50 02/09/18 02/10/18 02/11/18 05:59 05:59 05:59 Intake Total 300 1660 400 Output Total 2160 300 Balance 300 -500 100 - Physical Exam Constitutional: no apparent distress, obese Eyes: PERRL, anicteric sclera, EOMI Ears, Nose, Mouth, Throat: moist mucous membranes, hearing normal, ears appear normal, no oral mucosal ulcers Cardiovascular: regular rate and rhythym, no murmur, rub, or gallop, No edema Respiratory: no respiratory distress, reduced air movement, rhonchi, No expiratory wheeze Gastrointestinal: normoactive bowel sounds, soft, non-tender abdomen, no palpable masses Genitourinary: other (suprapubic cath now in place) Skin: other (abrasions on BLE) Musculoskeletal: generalized weakness Neurologic: AAOx3, other (chronic dysarthria) Psychiatric: interacting appropriately ICD10 Worksheet Patient Problems: Problems Problem Status Onset Pneumonia Acute Sepsis Acute
--- NOTE | 2018-02-10 14:36 | ASMTCMCOM ---
CM Note CM Note Notes: Hospitalist has submitted orders for palliative care consult and SL[facility]. [facility]T has completed their evaluation and will be working with pt. Awaiting palliative and OT consults. CM will follow. D/C Plan: TBD Date Signed: 02/10/2018 02:35 PM Electronically Signed By:Qing Iglesias
--- NOTE | 2018-02-10 14:39 | ASMTCMCOM ---
CM Note CM Note Notes: *Addendum to prior note: This CM has reviewed chart and history of this patient. Patient lives alone and has RN and PT care per [facility]. In addition, patient receives HCBS. Patient's skin care instructor at [employer] is Melania . I have spoken with Melania and she confirms that patient receives HCBS for "personal care" 5 days per week, for a total of 15 hours. Melania states that this can be evaluated and services increased if needed. Date Signed: 02/10/2018 02:38 PM Electronically Signed By:Qing Iglesias
--- NOTE | 2018-02-10 17:10 | SOAPPROG ---
SOAP Progress Note Assessment/Plan: Assessment: s/p formal SP tube placement and DVIU yesterday. Plan: 1. This pt. should not be allowed to live independently any longer. He is at high risk for repeat inadvertent removal of his SP tube which would likely require repeat surgery under anesthesia (among other non- related safety concerns). 2. He needs to FU in my office 1 month after discharge for SP tube replacement. Assuming he returns to an independent environment after discharge , we will then arrange for home health nursing replacement on a monthly basis thereafter. 3. SP tube dressings can be removed tomorrow followed by once-daily application of Bacitrcin ointment around tube exit site. Objective: Vital Signs Temp Pulse Resp BP Pulse Ox 36.9 C 78 20 151/87 H 96 02/10/18 11:52 02/10/18 11:52 02/10/18 11:52 02/10/18 11:52 02/10/18 11:52 Microbiology 02/08/18 18:18 Blood Panel (PCR) - Final Blood Staph Coagulase Negative Laboratory Results 02/10/18 04:50 02/10/18 04:50 02/09/18 02/10/18 02/11/18 05:59 05:59 05:59 Intake Total 300 1660 400 Output Total 2160 300 Balance 300 -500 100 ICD10 Worksheet Patient Problems: Problems Problem Status Onset Pneumonia Acute Sepsis Acute
[2018-02-10] MEDS: AMITRIPTYLINE HCL 10 MG TAB PO SCH (20:35)
[2018-02-10] MEDS: OXYBUTYNIN 5 MG EXT REL TAB PO SCH ×2 (20:35→20:38)
[2018-02-10] MEDS: SENNOSIDES/DOCUSATE SODIUM TAB PO SCH (20:35)
[2018-02-10] MEDS: OLANZapine 10 MG TAB PO SCH (21:49)
[2018-02-10] MEDS: ZOLPIDEM TARTRATE 5 MG TAB PO SCH (22:53)
[2018-02-11] MEDS: AMPICILLIN/SULBACTAM 3 GM in NS 100 ML IV SCH ×4 (00:07→17:48)
[2018-02-11] MEDS: ALBUTEROL 60 PUFFS/8 GM MDI IH SCH ×2 (08:45→21:00)
--- NOTE | 2018-02-11 08:46 | PDPCPN ---
Palliative Care Progress Note Assessment/Plan: Assessment: [facility] [address] [place] [id number] (O) [phone](F) PALLIATIVE CARE NOTE NAME: Clifton Mdconnell : 60, 57 VISIT TYPE: Initial LOCATION: [facility] LEVEL OF CARE: Hospice watch/transitional DIAGNOSES: 1. Multiple sclerosis CC: Initial palliative care visit HPI: Mister Mcdonnell is a 57-year-old male with a long-standing history of multiple sclerosis. He is now hospitalized for replacement of a suprapubic catheter which had been dislodged. Upon admission he was found to also have a left lower lobe pneumonia with acute on chronic respiratory failure. He is currently receiving IV antibiotics. He has a history of dysarthria. He has several lower extremity wounds which he states he has gotten due to maneuvering on the floor as his home is not set up for a wheelchair. He lives alone and does have caregivers for several hours most days. He has refused supplemental oxygen. He has refused moving to a fci facility. His living conditions are questionable with regard to safety. A call has been placed by the senior case manager to his community relations assistant for further information with regard to the safety of his living conditions. PMH: Multiple sclerosis, chronic respiratory failure ALLERGIES: FAMILY HISTORY: SOCIAL HISTORY: Lives alone PATIENT GOALS OF CARE: 1. Return home 2. Remain independent ACTIVE SYMPTOMS/ASSESSMENTS/RECOMMENDATIONS: 1. Multiple sclerosis G 35: Continued progressive disease. MODIFIED [place] SYMPTOM ASSESSMENT SCALE: 0-none; 1-3 mild; 4-6 moderate; 7-10 severe Unable to Respond: No [ ] Delirium: 0-none Depression: 0-none Anxiety: 0none Tiredness (fatigue): 0none Drowsiness (sleepiness): 0-none Pain: 0-none Nausea: 0-none Anorexia: 0-none Shortness of Breath: 0-none Secretions: 0-none Constipation: 0-none Symptom and side effect management: (acceptable to patient ) RISK FACTORS FOR RE-HOSPITALIZATION: o NEEDS ASSISTANCE WITH ADLS/FALL RISK o MEDICATION MANAGEMENT o LIVES ALONE o CAREGIVER ANXIETY o COMPROMISED FINANCIAL STATUS o INADEQUATE SUPPORT SYSTEM o INADEQUATE TRANSPORTATION o >2 HOSPITALIZATIONS IN PAST 12 MONTHS o DISEASE EDUCATION DEFICIT OBJECTIVE FINDINGS Palliative Performance Score: 40 FAST: Not applicable NYHA: n/a Vital Signs: Wt: MAC: Neuro: A&O to person, place, time and event HEENT: Normocephalic; atraumatic RESP: Regular, deep, symmetrical. No cough or wheezing CV: no LE edema GI: soft, round : no dysuria or hematuria MSK: Mild muscle wasting. Non-Ambulatory SKIN: Several lower extremity wounds LAB Data: N/A Disposition: Living at home with unclear safe conditions ADVANCE CARE PLANNING DISCUSSION PLAN: 1. CORPORATION OFFICER follow-up in community 2. Palliative Supportive Service referrals for SW/gravure printing machinist Thank you for the opportunity to participate in the care of this patient. TIME SPENT: [id number] 70 min >50% of the time spent counseling, educating and coordinating the above topics. Issac Prieto ANP Plan: 02/11/18 08:46 Objective: Vital Signs Temp Pulse Resp BP Pulse Ox 37.2 C 68 20 124/63 H 93 02/11/18 04:29 02/11/18 04:29 02/11/18 04:29 02/11/18 04:29 02/11/18 04:29 Microbiology 02/08/18 18:18 Blood Panel (PCR) - Final Blood Staph Coagulase Negative Laboratory Results 02/11/18 08:05 02/10/18 04:50 02/10/18 02/11/18 02/12/18 05:59 05:59 05:59 Intake Total 1660 1500 Output Total 2160 3100 Balance -500 -1600 ICD10 Worksheet Patient Problems: Problems Problem Status Onset Pneumonia Acute Sepsis Acute
[2018-02-11] MEDS: NYSTATIN POWDER 15 GM BTL TP SCH ×2 (09:00→22:05)
[2018-02-11] MEDS: oxyCODONE CR 30 MG TAB PO SCH ×2 (09:48→22:01)
[2018-02-11] MEDS: METOPROLOL TARTRATE 50 MG TAB PO SCH ×2 (09:49→22:03)
[2018-02-11] MEDS: guaiFENesin 600 MG TAB.ER PO SCH ×2 (09:49→21:58)
[2018-02-11] MEDS: CYCLOBENZAPRINE 10 MG TAB PO SCH ×2 (09:50→22:00)
[2018-02-11] MEDS: DIAZEPAM 5 MG TAB PO SCH ×2 (09:50→22:00)
[2018-02-11] MEDS: SENNOSIDES/DOCUSATE SODIUM TAB PO SCH ×2 (09:51→22:01)
[2018-02-11] MEDS: buPROPion SR 150 MG TAB PO SCH ×2 (09:51→21:59)
[2018-02-11] MEDS: FOLIC ACID 1 MG TAB PO SCH (09:51)
[2018-02-11] MEDS: PANTOPRAZOLE SODIUM 40 MG TAB PO SCH (09:51)
[2018-02-11] MEDS: busPIRone 15 MG TAB PO SCH ×2 (09:51→21:59)
[2018-02-11] MEDS: GABAPENTIN 400 MG CAP PO SCH ×3 (09:51→21:58)
[2018-02-11] MEDS: Dalfampridine [Ampyra] 10 MG PO SCH ×2 (10:20→22:04)
--- NOTE | 2018-02-11 16:37 | HOSPPROG ---
Hospitalist Progress Note Assessment/Plan: 57 yo M with advanced MS and chronic urinary retention presented after inadvertent dislodgement of suprapubic catheter. Also found to be hypoxic with infiltrate on CXR. 1. Acute hypoxemic resp failure: Resp distress improved, still requiring 4-5L. Driven by pna, obstructive lung dz. - Antibiotics, schedule bronchodilators, wean O2 - This is almost certainly a chronic issue but is refusing supplemental oxygen at discharge 2. Left lower lobe aspiration pneumonia - Cont IV unasyn, day 3 - BOWLING FLOOR MANAGER evaluation - recommending dysphagia diet w/pureed foods 3. Staph epidermidis + blood culture: 03/01 bottles strongly suggests contamination, especially given his clinical stability. - Sensitivities from 02/08 cultures show resistance to penicillin. Unasyn shouldn't be covering this but he hasn't fevered or showed signs of worsening infection so this strengthens argument re: contamination - Follow up repeat blood cultures from today 3. Chronic urinary retention: r/t MS. - S/p formal suprapubic cath placement in OR by Dr Olson on 02/09 4. Bilateral LE wounds: due to him crawling around at home. Do not appear infected - Wound care 5. Advanced MS: Home meds. Currently living independently which is unsafe. He has refused SNF/inpatient rehab in the past. - PT/OT - recommending 24 hour supervision 6. Chronic pain with opioid dependency: Home meds 7. Anemia: No e/o bleeding. H/H slightly lower than prior. Monitor. 8. SUELLEN: Resolved. Diet: regular Code: full Dispo: Remain inpatient for ongoing hypoxia. He is refusing supplemental oxygen at discharge so I'd like him to have lower oxygen requirements before discharging. Also, he became irate when I suggested pursuing additional resources at home. Palliative care has been consulted. ADD likely in 1-2 days. Subjective: Breathing ok, no pain. He became irate when I broached the topic of his independent living. He also gestured for me to leave the room when I asked him about using supplemental oxygen at discharge. Objective: Vital Signs Temp Pulse Resp BP Pulse Ox 36.5 C 65 18 115/72 94 02/11/18 12:31 02/11/18 12:31 02/11/18 12:31 02/11/18 12:31 02/11/18 12:31 Microbiology 02/08/18 18:18 Blood Panel (PCR) - Final Blood Staph Coagulase Negative Laboratory Results 02/11/18 08:05 02/10/18 04:50 02/10/18 02/11/18 02/12/18 05:59 05:59 05:59 Intake Total 1660 1500 860 Output Total 2160 3100 1000 Balance -500 -1600 -140 - Physical Exam Constitutional: no apparent distress, obese Eyes: PERRL, anicteric sclera, EOMI Ears, Nose, Mouth, Throat: moist mucous membranes Cardiovascular: regular rate and rhythym, no murmur, rub, or gallop Respiratory: no respiratory distress, reduced air movement, No no rales or rhonchi, No expiratory wheeze Gastrointestinal: normoactive bowel sounds, soft, non-tender abdomen, no palpable masses Genitourinary: other (suprapubic cath c/d/i) Skin: abrasion (BLE, fluid collections below kneecaps from crawling on floor) Musculoskeletal: full muscle strength, no muscle tenderness, normal joint ROM Neurologic: AAOx3, other (dysarthric) Psychiatric: interacting appropriately, not anxious, not encephalopathic, thought process linear ICD10 Worksheet Patient Problems: Problems Problem Status Onset Pneumonia Acute Sepsis Acute
[2018-02-11] MEDS: OLANZapine 10 MG TAB PO SCH (21:58)
[2018-02-11] MEDS: AMITRIPTYLINE HCL 10 MG TAB PO SCH (21:59)
[2018-02-11] MEDS: ZOLPIDEM TARTRATE 5 MG TAB PO SCH (22:00)
[2018-02-11] MEDS: OXYBUTYNIN 5 MG EXT REL TAB PO SCH (22:01)
[2018-02-12] MEDS: AMPICILLIN/SULBACTAM 3 GM in NS 100 ML IV SCH ×4 (00:25→18:25)
[2018-02-12] MEDS ORDERED: oxyCODONE CR 30 MG TAB PO ONE (00:41)
[2018-02-12] MEDS: oxyCODONE IR 5 MG TAB PO PRN ×3 (03:40→13:58)
[2018-02-12] MEDS: PROMETHAZINE HCL 25 MG/ML INJ IVP PRN (06:16)
[2018-02-12] MEDS: ONDANSETRON 4 MG/2 ML VIAL IVP PRN (09:29)
[2018-02-12] MEDS: SENNOSIDES/DOCUSATE SODIUM TAB PO SCH ×2 (09:33→19:44)
[2018-02-12] MEDS: CYCLOBENZAPRINE 10 MG TAB PO SCH ×2 (09:57→21:18)
[2018-02-12] MEDS: DIAZEPAM 5 MG TAB PO SCH ×2 (09:57→21:18)
[2018-02-12] MEDS: oxyCODONE CR 30 MG TAB PO SCH ×2 (09:57→21:19)
[2018-02-12] MEDS: buPROPion SR 150 MG TAB PO SCH ×2 (09:58→21:18)
[2018-02-12] MEDS: METOPROLOL TARTRATE 50 MG TAB PO SCH ×2 (09:58→22:20)
[2018-02-12] MEDS: FOLIC ACID 1 MG TAB PO SCH (09:58)
[2018-02-12] MEDS: guaiFENesin 600 MG TAB.ER PO SCH ×2 (09:59→22:18)
[2018-02-12] MEDS: busPIRone 15 MG TAB PO SCH ×2 (09:59→21:18)
[2018-02-12] MEDS: GABAPENTIN 400 MG CAP PO SCH ×3 (09:59→21:20)
[2018-02-12] MEDS: ALBUTEROL 60 PUFFS/8 GM MDI IH SCH ×2 (10:08→21:06)
[2018-02-12] MEDS: PANTOPRAZOLE SODIUM 40 MG TAB PO SCH (10:15)
[2018-02-12] MEDS: Dalfampridine [Ampyra] 10 MG PO SCH ×2 (10:15→19:43)
[2018-02-12] MEDS: NYSTATIN POWDER 15 GM BTL TP SCH ×2 (12:00→22:26)
--- NOTE | 2018-02-12 12:46 | HOSPPROG ---
Hospitalist Progress Note Assessment/Plan: 57 yo M with advanced MS and chronic urinary retention presented after inadvertent dislodgement of suprapubic catheter. Also found to be hypoxic with infiltrate on CXR. 1. Acute hypoxemic resp failure: Still requiring 4L. - Antibiotics, schedule bronchodilators, wean O2 - This is almost certainly a chronic issue but is refusing supplemental oxygen at discharge 2. Left lower lobe aspiration pneumonia - Cont IV unasyn, day 4 - MOLDING LINE ASSISTANT evaluation - recommending dysphagia diet w/pureed foods 3. N/V, diarrhea: Acute, new problem. Loose stools could be antibiotic related, low concern for C diff at this point. Also possibly opioid withdrawal (see next problem). - Check LFTs, lipase, abdominal x-ray - IV anti-emetics 4. Chronic pain with opioid dependency: Reviewed PDMP. He filled oxycontin 30mg #120 five days apart in December. He did similar in November. He reports being on oxycontin 60mg QID but has only been getting BID here. I advised him that oxycontin isn't dosed 4 times/day and I feel uncomfortable giving him this much. - Will keep pain meds as is - Discussed with pharmacy. Plan to call his opioid prescriber (Maldonado Manning MD ) tomorrow to further discuss 5. Staph epidermidis + blood culture: 1/2 bottles strongly suggests contamination, especially given his clinical stability. Repeat cultures negative. 6. Chronic urinary retention: r/t MS. - S/p formal suprapubic cath placement in OR by Dr Olson on 02/09 7. Bilateral LE wounds: due to him crawling around at home. Do not appear infected - Wound care 8. Advanced MS: Home meds. Currently living independently which is unsafe. He has refused SNF/inpatient rehab in the past. - PT/OT - recommending 24 hour supervision 9. Chronic pain with opioid dependency: Home meds 10. Anemia: No e/o bleeding. H/H slightly lower than prior. Monitor. 11. SUELLEN: Resolved. Diet: regular Code: full Dispo: Remain inpatient. Unsafe to dc as not tolerating PO. He is refusing supplemental oxygen at discharge so I'd like him to have lower oxygen requirements before discharging. Palliative care has been consulted. ADD likely in 1-2 days. Subjective: Nausea, vomiting, and loose stools started last night and have continued into this morning. Some lower abdominal pain. No fevers. Objective: Vital Signs Temp Pulse Resp BP Pulse Ox 35.8 C L 58 L 20 169/128 H 95 02/12/18 06:45 02/12/18 10:28 02/12/18 10:28 02/12/18 11:55 02/12/18 10:28 Microbiology 02/08/18 18:18 Blood Panel (PCR) - Final Blood Staph Coagulase Negative Laboratory Results 02/12/18 04:16 02/10/18 04:50 02/11/18 02/12/18 02/13/18 05:59 05:59 05:59 Intake Total 1500 1060 Output Total 3100 4050 1100 Balance -1600 -2990 -1100 - Physical Exam Constitutional: obese, uncomfortable Eyes: anicteric sclera Ears, Nose, Mouth, Throat: moist mucous membranes Cardiovascular: regular rate and rhythym, no murmur, rub, or gallop, No edema Respiratory: no respiratory distress, no rales or rhonchi, clear to auscultation , reduced air movement (bilateral bases) Gastrointestinal: normoactive bowel sounds, tenderness, distension Genitourinary: other (suprapubic cath site c/d/i) Skin: abrasion (bilateral lower legs) Musculoskeletal: generalized weakness Neurologic: AAOx3, other (chronic dysarthria) Psychiatric: not encephalopathic ICD10 Worksheet Patient Problems: Problems Problem Status Onset Pneumonia Acute Sepsis Acute
[2018-02-12] MEDS: NS 1,000 ML IV SCH (15:03)
[2018-02-12] MEDS: BACITRACIN OINTMENT 1 PACKET TP SCH (18:15)
[2018-02-12] MEDS: AMITRIPTYLINE HCL 10 MG TAB PO SCH (21:18)
[2018-02-12] MEDS: OXYBUTYNIN 5 MG EXT REL TAB PO SCH (21:19)
[2018-02-12] MEDS: OLANZapine 10 MG TAB PO SCH (21:19)
[2018-02-12] MEDS: ZOLPIDEM TARTRATE 5 MG TAB PO SCH (22:19)
[2018-02-13] MEDS: AMPICILLIN/SULBACTAM 3 GM in NS 100 ML IV SCH ×4 (00:18→17:08)
[2018-02-13] MEDS: ALBUTEROL 60 PUFFS/8 GM MDI IH SCH ×2 (09:26→21:17)
[2018-02-13] MEDS: METOPROLOL TARTRATE 50 MG TAB PO SCH ×2 (09:30→21:08)
[2018-02-13] MEDS: BACITRACIN OINTMENT 1 PACKET TP SCH (09:32)
[2018-02-13] MEDS: FOLIC ACID 1 MG TAB PO SCH (09:32)
[2018-02-13] MEDS: GABAPENTIN 400 MG CAP PO SCH ×3 (09:32→21:01)
[2018-02-13] MEDS: guaiFENesin 600 MG TAB.ER PO SCH ×2 (09:35→21:04)
[2018-02-13] MEDS: PANTOPRAZOLE SODIUM 40 MG TAB PO SCH (09:36)
[2018-02-13] MEDS: buPROPion SR 150 MG TAB PO SCH ×2 (09:51→21:04)
[2018-02-13] MEDS: busPIRone 15 MG TAB PO SCH ×2 (09:51→21:09)
[2018-02-13] MEDS: oxyCODONE CR 30 MG TAB PO SCH ×2 (09:52→21:01)
[2018-02-13] MEDS: DIAZEPAM 5 MG TAB PO SCH ×2 (09:52→21:05)
[2018-02-13] MEDS: CYCLOBENZAPRINE 10 MG TAB PO SCH ×2 (09:55→21:07)
[2018-02-13] MEDS: SENNOSIDES/DOCUSATE SODIUM TAB PO SCH ×2 (09:56→21:18)
[2018-02-13] MEDS: NYSTATIN POWDER 15 GM BTL TP SCH ×2 (09:58→21:18)
[2018-02-13] MEDS: Dalfampridine [Ampyra] 10 MG PO SCH ×2 (12:41→19:29)
--- NOTE | 2018-02-13 12:59 | WOCRNPDOC ---
AMIRAH Advanced Assessment Note - Skin Integrity Problem, Advanced Assess Right Proximal Buttock Pressure Injury Dressing Type: Open to Air Exudate Amount: None Integumentary Issue Intervention: Visualized Under Dressing (no dressing present ) Court Wound Tissue: Erythema, Non-blanching Court Wound Swelling: Mild Wound Bed Color: Red Site Measurement - Head-to-Toe Length X Width X Depth (cm): [id number] Pressure Injury Stage: Deep Tissue Injury (DTI) Pressure Injury Present on Admit: Yes Skin Integrity Problem Comment: Wound has not opened, but skin texture feels rough to the touch, especially around wound edges. Wound appears more red than previous assessment. Discussed patient plan of care with ROSIO Stanton. Floor RNs will continue to monitor for wound bed changes, and will reconsult if wound bed opens. ROSIO Hawkins in room for care. Wound care will follow. Left Proximal Buttock Pressure Injury Dressing Type: Open to Air Exudate Amount: None Integumentary Issue Intervention: Visualized Under Dressing Court Wound Tissue: Erythema, Non-blanching, Swollen Court Wound Swelling: Mild Wound Bed Color: Red Site Measurement - Head-to-Toe Length X Width X Depth (cm): [id number] Pressure Injury Stage: Deep Tissue Injury (DTI) Pressure Injury Present on Admit: Yes Skin Integrity Problem Comment: Wound bed measurement has not changed since prior assessment, but color of wound has become more red. Skin texture is rough. ROSIO Stanton and ROSIO Hawkins. in room for care. Wound care will follow. Please reconsult if wound bed opens. Left Lateral Ankle Pressure Injury Dressing Type: Allevyn Life Dressing Description: Clean/Dry, Intact Exudate Amount: Minimal Exudate Color: Reddish/Yellow Exudate Characteristic(s): Serosanguinous Integumentary Issue Intervention: Visualized Under Dressing Court Wound Tissue: Erythema, Non-blanching, Swollen Court Wound Swelling: Moderate Wound Bed Constitution: Red/Pablo - Non Granular Tissue Site Measurement - Head-to-Toe Length X Width X Depth (cm): 0.8x1x0.3 Pressure Injury Stage: Stage 2 Pressure Injury Present on Admit: Yes Skin Integrity Problem Comment: Wound bed cleaned with normal saline and patted dry with gauze. Scab has come off of wound. Wound is partial thickness, but has potential to devolve based on location over bony prominence. Wound bed is very irregular in appearance with ridges throughout, possibly indicating previous scarred wounds or callouses. Wound care will follow.
[2018-02-13] MEDS ORDERED: INTERFERON BETA IM SCH (15:45)
--- NOTE | 2018-02-13 15:57 | HOSPPROG ---
Hospitalist Progress Note Assessment/Plan: 57 yo M with advanced MS and chronic urinary retention presented after inadvertent dislodgement of suprapubic catheter. Also found to be hypoxic with infiltrate on CXR. # acute hypoxemic resp failure -on RA this pm - chronic component # left lower lobe aspiration pneumonia - Cont IV unasyn, day 5 - VETERINARIAN ASSISTANT evaluation - recommending dysphagia diet w/pureed foods # possible cognitive issues - cog eval today # possible ileus - will recheck AXR tomorrow # chronic pain with opioid dependency: Reviewed PDMP. He filled oxycontin 30mg #120 five days apart in December. He did similar in November. He reports being on oxycontin 60mg QID but has only been getting BID here. I advised him that oxycontin isn't dosed 4 times/day and I feel uncomfortable giving him this much. - cont oxycontin 60 bid - opioid prescriber (Maldonado Manning MD ) # chronic urinary retention: r/t MS. - S/p suprapubic cath placement in [place] by Dr Olson on 02/09 # bilateral LE wounds: due to him crawling around at home. Do not appear infected - Wound care # advanced MS: Home meds. Currently living independently which is unsafe. He has refused SNF/inpatient rehab in the past. - PT/OT - recommending 24 hour supervision # anemia: No e/o bleeding. H/H stable # SUELLEN: Resolved Subjective: asking for ice chips Objective: Vital Signs Temp Pulse Resp BP Pulse Ox 36.3 C 63 18 158/97 H 92 02/13/18 15:15 02/13/18 15:15 02/13/18 15:15 02/13/18 15:15 02/13/18 15:15 Microbiology 02/08/18 18:18 Blood Panel (PCR) - Final Blood Staph Coagulase Negative Laboratory Results 02/13/18 08:05 02/13/18 08:05 02/12/18 02/13/18 02/14/18 05:59 05:59 05:59 Intake Total 1060 2000 0 Output Total 4050 2100 1800 Balance -2990 -100 -1800 chart reviewed AXR personally reviewed - Physical Exam Constitutional: uncomfortable (lying in bed) Cardiovascular: regular rate and rhythym, no murmur, rub, or gallop Respiratory: no respiratory distress, no rales or rhonchi Gastrointestinal: soft, non-tender abdomen, no palpable masses, No guarding, No rebound, No distension ICD10 Worksheet Patient Problems: Problems Problem Status Onset Sepsis Acute Pneumonia Acute
[2018-02-13] MEDS: NS 1,000 ML IV SCH (16:25)
--- NOTE | 2018-02-13 16:41 | ASMTCMCOM ---
CM Note CM Note Notes: Patient plan of care reviewed in rounds, Patient adamant about not going to SNF despite medical recommendations. He is current with HHC and has HCBC care through medicaid for 15 hour per week which will need to be increased. He has open wounds on his bottom, End stage MS. Wounds on lower extremities fur to poor access to rooms in his home so he crawls about. CM to follow. Plan: To home with resumption of HHC and increased services. Date Signed: 02/13/2018 04:39 PM Electronically Signed By:Julisa Magallanes RN
[2018-02-13] MEDS: oxyCODONE IR 5 MG TAB PO PRN (17:07)
[2018-02-13] MEDS: OLANZapine 10 MG TAB PO SCH (21:06)
[2018-02-13] MEDS: AMITRIPTYLINE HCL 10 MG TAB PO SCH (21:07)
[2018-02-13] MEDS: OXYBUTYNIN 5 MG EXT REL TAB PO SCH (21:08)
[2018-02-13] MEDS: POVIDONE-IODINE 30 ML STERILE SOLUTION TP SCH (21:11)
[2018-02-13] MEDS: ZOLPIDEM TARTRATE 5 MG TAB PO SCH (21:24)
[2018-02-14] MEDS: AMPICILLIN/SULBACTAM 3 GM in NS 100 ML IV SCH ×3 (00:18→12:50)
[2018-02-14] MEDS: oxyCODONE IR 5 MG TAB PO PRN ×2 (04:32→15:26)
[2018-02-14 05:23] LABS: PLATELET COUNT 371 10^3/uL (150-400)
[2018-02-14] MEDS: METOPROLOL TARTRATE 50 MG TAB PO SCH ×2 (09:04→21:34)
[2018-02-14] MEDS: oxyCODONE CR 30 MG TAB PO SCH ×2 (09:04→21:33)
[2018-02-14] MEDS: busPIRone 15 MG TAB PO SCH ×2 (09:06→21:31)
[2018-02-14] MEDS: CYCLOBENZAPRINE 10 MG TAB PO SCH ×2 (09:09→21:35)
[2018-02-14] MEDS: DIAZEPAM 5 MG TAB PO SCH ×2 (09:09→21:33)
[2018-02-14] MEDS: PANTOPRAZOLE SODIUM 40 MG TAB PO SCH (09:09)
[2018-02-14] MEDS: FOLIC ACID 1 MG TAB PO SCH (09:10)
[2018-02-14] MEDS: SENNOSIDES/DOCUSATE SODIUM TAB PO SCH ×2 (09:10→21:32)
[2018-02-14] MEDS: buPROPion SR 150 MG TAB PO SCH ×2 (09:11→21:35)
[2018-02-14] MEDS: GABAPENTIN 400 MG CAP PO SCH ×3 (09:11→21:59)
[2018-02-14] MEDS: guaiFENesin 600 MG TAB.ER PO SCH ×2 (09:11→21:35)
[2018-02-14] MEDS: BACITRACIN OINTMENT 1 PACKET TP SCH (09:12)
[2018-02-14] MEDS: Dalfampridine [Ampyra] 10 MG PO SCH ×2 (09:14→21:35)
[2018-02-14] MEDS: NYSTATIN POWDER 15 GM BTL TP SCH ×2 (09:18→21:51)
[2018-02-14] MEDS: POVIDONE-IODINE 30 ML STERILE SOLUTION TP SCH ×2 (09:42→21:55)
[2018-02-14] MEDS: ALBUTEROL 60 PUFFS/8 GM MDI IH SCH ×2 (09:59→21:22)
--- NOTE | 2018-02-14 14:02 | ASMTCMCOM ---
CM Note CM Note Notes: Patient plan of care reviewed in rounds. per speech ez and , patient is decisional at this point in time. He is followed by Melania, his CM at [facility]. I spoke with her again today and she states they can increase services for him. She had reported before that accommodations for home modifications will be in place soon. He is also followed by [facility] which provides services three hours a day 5 times a week. Per MD still continuing to monitor his ileus. Plan: Home with increased services per HCBC and HHC. Date Signed: 02/14/2018 01:58 PM Electronically Signed By:Julisa Magallanes RN
[2018-02-14] MEDS ORDERED: MAGNESIUM CITRATE 300 ML BOTTLE PO ONE (15:46)
--- NOTE | 2018-02-14 15:49 | HOSPPROG ---
Hospitalist Progress Note Assessment/Plan: 57 yo M with advanced MS and chronic urinary retention presented after inadvertent dislodgement of suprapubic catheter. Also found to be hypoxic with infiltrate on CXR. # acute hypoxemic resp failure - on RA this pm - chronic component # left lower lobe aspiration pneumonia - stop unasyn today - [employer] SQU[employer] POLICE OFFICER evaluation - recommending dysphagia diet w/pureed foods # possible cognitive issues - SLUMS ; i think he has decisional capacity at this point # possible ileus - will recheck AXR tomorrow # chronic pain with opioid dependency: Reviewed PDMP. He filled oxycontin 30mg #120 five days apart in December. He did similar in November. He reports being on oxycontin 60mg QID but has only been getting BID here. I advised him that oxycontin isn't dosed 4 times/day and I feel uncomfortable giving him this much. - cont oxycontin 60 bid - opioid prescriber (Maldonado Manning MD ) # chronic urinary retention: r/t MS. - S/p suprapubic cath placement in [place] by Dr Olson on 02/09 # bilateral LE wounds: due to him crawling around at home. Do not appear infected - Wound care # advanced MS: Home meds. currently living independently which is unsafe. he has refused SNF/inpatient rehab in the past. - PT/OT - recommending 24 hour supervision # anemia: No e/o bleeding. H/H stable # SUELLEN: Resolved # dispo - possibly home with increased home care tomorrow if he has a BM; he is adamantly refusing SNF Subjective: eating today; no BM Objective: Vital Signs Temp Pulse Resp BP Pulse Ox 36.3 C 68 18 145/97 H 92 02/14/18 09:21 02/14/18 12:00 02/14/18 09:21 02/14/18 09:21 02/14/18 12:00 Microbiology 02/08/18 18:18 Blood Culture - Final Blood Staphylococcus Epidermidis Blood Panel (PCR) - Final Staph Coagulase Negative 02/08/18 17:50 Blood Culture - Final Blood Laboratory Results 02/14/18 04:34 02/14/18 04:34 02/13/18 02/14/18 02/15/18 05:59 05:59 05:59 Intake Total 1999 1351 Output Total 2099 6629 Balance -100 3049 axr personally reviewed - Physical Exam Constitutional: chronically ill appearing Cardiovascular: regular rate and rhythym, no murmur, rub, or gallop Respiratory: no respiratory distress, no rales or rhonchi Gastrointestinal: soft, non-tender abdomen, No rebound, No distension ICD10 Worksheet Patient Problems: Problems Problem Status Onset Sepsis Acute Pneumonia Acute
[2018-02-14] MEDS: NS 1,000 ML IV SCH (15:51)
[2018-02-14] MEDS: OLANZapine 10 MG TAB PO SCH (21:32)
[2018-02-14] MEDS: ZOLPIDEM TARTRATE 5 MG TAB PO SCH (21:33)
[2018-02-14] MEDS: OXYBUTYNIN 5 MG EXT REL TAB PO SCH (21:34)
[2018-02-14] MEDS: AMITRIPTYLINE HCL 10 MG TAB PO SCH (21:35)
[2018-02-15] MEDS: oxyCODONE IR 5 MG TAB PO PRN ×2 (03:19→15:37)
[2018-02-15 05:24] LABS: PLATELET COUNT 374 10^3/uL (150-400)
[2018-02-15] MEDS: ALBUTEROL 60 PUFFS/8 GM MDI IH SCH (08:11)
[2018-02-15] MEDS: DIAZEPAM 5 MG TAB PO SCH (08:47)
[2018-02-15] MEDS: GABAPENTIN 400 MG CAP PO SCH ×2 (08:47→15:37)
[2018-02-15] MEDS: oxyCODONE CR 30 MG TAB PO SCH (08:47)
[2018-02-15] MEDS: buPROPion SR 150 MG TAB PO SCH (08:48)
[2018-02-15] MEDS: PANTOPRAZOLE SODIUM 40 MG TAB PO SCH (08:48)
[2018-02-15] MEDS: SENNOSIDES/DOCUSATE SODIUM TAB PO SCH (08:48)
[2018-02-15] MEDS: guaiFENesin 600 MG TAB.ER PO SCH (08:48)
[2018-02-15] MEDS: CYCLOBENZAPRINE 10 MG TAB PO SCH (08:48)
[2018-02-15] MEDS: METOPROLOL TARTRATE 50 MG TAB PO SCH (08:48)
[2018-02-15] MEDS: busPIRone 15 MG TAB PO SCH (08:48)
[2018-02-15] MEDS: BACITRACIN OINTMENT 1 PACKET TP SCH (08:49)
[2018-02-15] MEDS: Dalfampridine [Ampyra] 10 MG PO SCH (08:49)
[2018-02-15] MEDS: NYSTATIN POWDER 15 GM BTL TP SCH (08:50)
[2018-02-15] MEDS: FOLIC ACID 1 MG TAB PO SCH (08:53)
--- NOTE | 2018-02-15 13:17 | PDDCSUM ---
Discharge Summary Discharge Summary: 57 yo M with advanced MS and chronic urinary retention admitted after inadvertent dislodgement of suprapubic catheter. Also found to be hypoxic with infiltrate on CXR. He was treated for a left lower lobe pneumonia with Unasyn which was concluded on 02/14. Hospitalization was complicated by constipation which resolved on the day of discharge. the pt was felt to require a SNF but he refused. He was set up for home health care. On the day of discharge he is feeling back to baseline and is requesting a discharge. He will f/u with PCP next week and with Urology as needed. DDX: # acute hypoxemic resp failure, resolved - on RA # left lower lobe aspiration pneumonia, resolved - HEALTHCARE RISK CONTROL CONSULTANT evaluation - recommending dysphagia diet w/pureed foods # possible cognitive issues - SLUMS ; i think he has decisional capacity at this point # possible ileus - This appears resolved as he had a BM this morning, the day of discharge # chronic pain with opioid dependency: - opioid prescriber (Maldonado Manning MD ) # chronic urinary retention: r/t MS. - S/p suprapubic cath placement in OR by Dr Olson on 02/09 # bilateral LE wounds: due to him crawling around at home. Do not appear infected - Wound care # advanced MS: Home meds. currently living independently which is unsafe. he has refused SNF/inpatient rehab in the past. - PT/OT - recommending 24 hour supervision # anemia: No e/o bleeding. H/H stable # SUELLEN: Resolved Exam: NAD AAOX3 RRR CTA B NON DISTENDED MEDS: SEE MED REC F/U: PER ABOVE TOTAL TIME SPENT ON DISCHARGE IS 35 MINUTES
--- NOTE | 2018-02-15 13:46 | PDIAF ---
- Diagnosis Diagnosis: urinary retention Code Status: Full Code - Medication Management Discharge Medications: electronically signed and located in the Home Medication List. - Orders Services needed: Registered Nurse, Certified Radio Frequency Design Engineer, Physical Therapy, Occupational Therapy Isolation Type: Contact Isolation Diet Recommendation: no restrictions on diet Diet Texture: Dysphagia 2 - Mechanically Altered - Chopped, Ground, Thin Liquids , Meds Whole in Puree Additional Instructions: Activity: As tolerated F/U: with PCP next week - Follow Up Care Current Providers and Referrals: Patient,NotPresent [Unknown] - As per Instructions
--- NOTE | 2018-02-15 14:09 | ASMTDCNOTE ---
Case Management Discharge Discharge Order Complete? Answers: Yes Patient to Obtain Answers: via Family Medications Transportation Arranged Answers: [facility] W/[facility] Family Notified Answers: Yes Discharge Comments Notes: Patient has been medically cleared for discharge to home with [facility] his Medicaid benefits. Request in place per his [facility] AMBAR Velázquez for home modifications. Will arrange for transport via [facility]. Melania is aware of discharge. [facility] to [facility]. Date Signed: 02/15/2018 02:08 PM Electronically Signed By:Julisa Magallanes RN
[2018-02-15 15:48] VITALS: BP 129/105
--- NOTE | 2018-02-15 16:16 | ASMTCMCOM ---
CM Note CM Note Notes: CM attempted to reach patient's son, no answer on phone number provided. Son had commented to RN that he would transport patient home. Unable to verify this information with the patient's son. RN notified that CM unable to verify with son. Date Signed: 02/15/2018 04:16 PM Electronically Signed By:Julisa Magallanes RN
== END 2018-02-15 19:26 | disposition home health service (06) | DRG 662 ==
LOC: EDUNIT# → F1N 18:40
PROVIDERS: ADMIT Internal Medicine; ATTEND Internal Medicine
PROC: 0T1 Urinary System, Bypass (ICD-10-PCS; principal; 2018-02-09 13:45)
PROC: 0TBD8ZZ Excision of Urethra, Via Natural or Artificial Opening Endoscopic (ICD-10-PCS; principal; 2018-02-09 13:45)
DX: T83.028A Displacement of other urinary catheter, initial encounter (principal); J69.0 Pneumonitis due to inhalation of food and vomit; J96.01 Acute respiratory failure with hypoxia; K56.7 Ileus, unspecified; F11.20 Opioid dependence, uncomplicated; N17.9 Acute kidney failure, unspecified; G35 Multiple sclerosis; R33.8 Other retention of urine; G89.29 Other chronic pain; D64.9 Anemia, unspecified; R47.1 Dysarthria and anarthria; L89.319 Pressure ulcer of right buttock, unspecified stage; L89.329 Pressure ulcer of left buttock, unspecified stage; L89.520 Pressure ulcer of left ankle, unstageable; Z99.3 Dependence on wheelchair; Z87.891 Personal history of nicotine dependence
CPT/HCPCS: 80305; 92523-GN; 92526-GN; 92610-GN; 97116-GP; 97163-GP; 97165-GO; 97166-GO; 97530-GO; 97530-GP; 97535-GO; C1758; C1769; G0378; G0480; G8978-GP-CL; G8979-GP-CK; G8987-GO-CL; G8988-GO-CI; G8988-GO-CJ; G8996-GN-CJ; G8997-GN-CI; G9168-GN-CK; G9169-GN-CK; G9170-GN-CK; J0295; J0456; J0696; J1100; J2250; J2405; J2550; J2704; J3010; J7613

== ENCOUNTER 2018-06-09 10:31 | Emergency (ER) | payer OTHER, MEDICAID ==
--- NOTE | 2018-06-09 10:32 | EDPHY ---
H & P Time Seen by Provider: 06/09/18 10:32 Constitutional: Initial Vital Signs Temperature (C) 36.9 C 06/09/18 10:34 Heart Rate 98 06/09/18 10:34 Respiratory Rate 18 06/09/18 10:34 Blood Pressure 170/94 H 06/09/18 10:34 O2 Sat (%) 92 06/09/18 10:34 O2 Delivery Mode Room Air Allergies/Adverse Reactions: No Known Allergies Allergy (Verified 01/13/18 19:11) Home Medications: Medication Instructions Recorded Albuterol [Proventil Inhaler HFA 1 puffs IH BID 08/18/17 (*)] Amitriptyline HCl [Elavil 10 mg 10 mg PO HS 08/18/17 (*)] Cyclobenzaprine [Flexeril 10 MG 10 mg PO BID 08/18/17 (*)] Dalfampridine [AMPYRA] 10 mg PO BID 08/18/17 Diazepam [Valium 10 MG (*)] 10 mg PO BID 08/18/17 Folic Acid [Folic Acid 1 MG (*)] 1 mg PO DAILY 08/18/17 Gabapentin [Neurontin 400 MG (*)] 800 mg PO TID 08/18/17 Interferon Beta-1A [Avonex] 30 mcg IM WE 08/18/17 Metoprolol Tartrate [Lopressor 50 75 mg PO BID 08/18/17 mg (*)] Pantoprazole Sodium [Protonix 40mg 40 mg PO DAILY 08/18/17 (*)] Testosterone IM [Testosterone 300 mg IM Q30D 08/18/17 100mg/ml IM inj (*)] ZOLPIDEM TARTRATE [Ambien CR 12.5 12.5 mg PO HS 08/18/17 mg] busPIRone [Buspar (*)] 30 mg PO BID 08/18/17 tiZANidine HCL [Zanaflex] 4 mg PO Q8H PRN 08/18/17 guaiFENesin [Mucinex 600 MG (*)] 600 mg PO BID tab.er 08/25/17 Acetaminophen [Pain Reliever] 1,000 mg PO Q6H PRN 02/08/18 Bupropion HCl [Bupropion HCl Sr] 150 mg PO BID 02/08/18 Hydrochlorothiazide [HCTZ (*)] 25 mg PO DAILY PRN 02/08/18 Nystatin Powder [Mycostatin Powder] 1 ry TP BID 02/08/18 OLANZapine [Zyprexa] 20 mg PO HS 02/08/18 Oxybutynin Chloride Xl [Ditropan 5 mg PO HS 02/08/18 Xl 5mg (*)] oxyCODONE HCL [Oxycontin] 60 mg PO BID 02/08/18 Polyethylene Glycol 3350 [Miralax 17 gm PO DAILY #30 02/15/18 17 gm (*)] Sennosides/Docusate Sodium 1 - 2 tab PO BID tab 02/15/18 [Senokot-S] Medical Decision Making - Diagnostics Imaging Results: Imaging Impressions Hip X-Ray 06/09/18 10:35 Impression: Negative. No hip fracture. Lumbar Spine X-Ray 06/09/18 10:35 Impression: Severe degenerative disk disease at L2-L3. Lumbar Spine CT 06/09/18 11:38 Impression: 1. No acute osseous abnormality. If symptoms persist, consider MRI evaluation. 2. Multilevel degenerative disk disease of the lumbar spine with spinal canal stenosis predominantly at L1-L2 and L2-L3. Findings and recommendations discussed with Riley Olson MD at 1219 hour, 01/2019. Pelvis CT 06/09/18 11:38 Impression: 1. No acute osseous abnormality. If symptoms persist, consider MRI evaluation. 2. Multilevel degenerative disk disease of the lumbar spine with spinal canal stenosis predominantly at L1-L2 and L2-L3. Findings and recommendations discussed with Riley Olson MD at 1219 hour, 01/2019. Imaging: Discussed imaging studies w/ call specialist Radiologist, I viewed and interpreted images myself ED Course/Re-evaluation: CHIEF COMPLAINT: Left hip pain HISTORY OF PRESENT ILLNESS: The patient is a 57 y/o male with a history of a MS and a suprapubic catheter arriving via EMS complaining of left hip pain secondary to a fall today. Per EMS and the patient, the patient tripped and fell this morning. After the fall he immediately developed left hip pain, was unable to walk, and had low back pain. He is also requesting that we change his suprapubic tube in the emergency department. No fever, headache, body aches, lightheadedness, chest pain, heart palpitations, shortness of breath, cough, abdominal pain, urinary or bowel complaints, numbness, paresthesias. REVIEW OF SYSTEMS: A comprehensive 10 system review of systems is otherwise negative aside from elements mentioned in the history of present illness and medical decision making. PHYSICAL EXAM: HR, BP, O2 Sat, RR. Temp noted General Appearance: Alert, well hydrated, appropriate, and non-toxic appearing. Head: Atraumatic without scalp tenderness or obvious injury Eyes: Pupils equal, round, reactive to light and accommodation, EOMI, no trauma , no injection. Ears: Clear bilaterally, no perforation, normal landmarks Nose: Atraumatic, no rhinorrhea, clear. Throat: There is no erythema or exudates, no lesions, normal tonsils, mucus membranes moist. Neck: Supple, 2+ carotid upstroke, nontender, no lymphadenopathy. Respiratory: No retractions, no distress, no wheezes, and no accessory muscle use. Lungs are clear to auscultation bilaterally. Cardiovascular: Regular rate and rhythm, no murmurs, rubs, or gallops. Bilateral carotid, radial, dorsalis pedis, and posterior tibial pulses intact. Good capillary refill all extremities. Gastrointestinal: Abdomen is soft, nontender, non-distended, no masses, no rebound, no guarding, no peritoneal signs. Musculoskeletal: Left leg is short and internally rotated. Patient has a lefts- sided pre-patellar bursitis from constantly crawling on his knees. Otherwise normal active ROM of all extremities, atraumatic. Neurological: Alert, appropriate, and interactive. The patient has normal DTRs and non-focal cranial nerves, motor, sensory, and cerebellar exam. Skin: No rashes, good turgor, no nodules on palpation. Past medical history: MS, suprapubic catheter Past surgical history: Family history: Denies Social history: Lives in [place], single, not employed DIAGNOSTICS/PROCEDURES/CRITICAL CARE TIME: Left hip x-ray: Unremarkable Lumbar x-ray: Unremarkable Lumbar CT: Unremarkable Pelvic CT: Unremarkable DIFFERENTIAL DIAGNOSIS: The differential diagnosis for the patient's hip injury included but was not limited to fracture, ligamentous injury, contusion, muscular strain. The differential diagnosis for the patient's back pain included but was not limited to musculoskeletal pain, epidural abscess, herniated disk, spinal fracture, and intra-abdominal causes including urinary system. MEDICAL DECISION MAKING: The patient is a 57 y/o male with a history of a MS and a suprapubic catheter arriving via EMS presenting with left hip pain secondary to tripping and falling today. On exam he has a shortened left leg that is internally rotated and lumbar spine pain. He also has a left-sided pre-patellar bursitis from constantly crawling on his knees. He is requesting that we change his suprapubic tube, which we will do. Labs, left hip x-ray and lumbar spine x-ray ordered; 1L IV NS, 4mg IV Zofran, 30mg IV Toradol, and 0.5mg IV Dilaudid administered. 1138: I am unable to see any osseous abnormalities on patient's plain films. Lumbar and Pelvic CT ordered. 1220: I spoke with Dr. Roth, radiologist, regarding this patient's CT imaging ; which are unremarkable. Patient is safe to be discharged home. I just went in to change the suprapubic catheter as the patient requested because it was not working. However, we had changed the bag earlier and the catheter is flowing beautiful it looks clean and the patient has decided he does not want changed at this time. He has home health nurses that come very regularly and they changed regularly so I will not perform that procedure now. The patient has no occult fractures or fractures and we will send him home at this time we are arranging transport. - Data Points Laboratory Results: Laboratory Results 06/09/18 11:15 06/09/18 11:15 06/09/18 06/09/18 06/09/18 11:24 11:15 11:15 WBC RBC Hgb Hct MCV MCH MCHC RDW Plt Count MPV Neut % (Auto) Lymph % (Auto) Glades % (Auto) Eos % (Auto) Baso % (Auto) Nucleat RBC Rel Count Absolute Neuts (auto) Absolute Lymphs (auto) Absolute Monos (auto) Absolute Eos (auto) Absolute Basos (auto) Absolute Nucleated RBC Immature Gran % Immature Gran # PT 12.9 SEC SEC (12.0-15.0) INR 1.01 (0.83-1.16) APTT 27.5 SEC SEC (23.0-38.0) Sodium 141 mEq/L mEq/L (135-145) POC Potassium 3.6 mEq/L mEq/L (3.3-5.0) Potassium 4.1 mEq/L mEq/L (3.5-5.2) Chloride 107 mEq/L mEq/L (97-110) Carbon Dioxide 23 mEq/l mEq/l (22-31) Anion Gap 11 mEq/L mEq/L (6-14) BUN 15 mg/dL mg/dL (7-23) Creatinine 0.9 mg/dL mg/dL (0.7-1.3) Estimated GFR > 60 Glucose 95 mg/dL mg/dL (70-100) Calcium 10.8 mg/dL H mg/dL (8.5-10.4) Phosphorus 4.2 mg/dL mg/dL (2.5-4.5) 06/09/18 11:15 WBC 16.97 10^3/uL H 10^3/uL (3.80-9.50) RBC 5.32 10^6/uL 10^6/uL (4.40-6.38) Hgb 14.9 g/dL g/dL (13.7-17.5) Hct 43.2 % % (40.0-51.0) MCV 81.2 fL L fL (81.5-99.8) MCH 28.0 pg pg (27.9-34.1) MCHC 34.5 g/dL g/dL (32.4-36.7) RDW 17.0 % H % (11.5-15.2) Plt Count 381 10^3/uL 10^3/uL (150-400) MPV 9.6 fL fL (8.7-11.7) Neut % (Auto) 83.0 % H % (39.3-74.2) Lymph % (Auto) 10.3 % L % (15.0-45.0) Glades % (Auto) 5.8 % % (4.5-13.0) Eos % (Auto) 0.0 % L % (0.6-7.6) Baso % (Auto) 0.4 % % (0.3-1.7) Nucleat RBC Rel Count 0.0 % % (0.0-0.2) Absolute Neuts (auto) 14.09 10^3/uL H 10^3/uL (1.70-6.50) Absolute Lymphs (auto) 1.75 10^3/uL 10^3/uL (1.00-3.00) Absolute Monos (auto) 0.98 10^3/uL H 10^3/uL (0.30-0.80) Absolute Eos (auto) 0.00 10^3/uL L 10^3/uL (0.03-0.40) Absolute Basos (auto) 0.06 10^3/uL 10^3/uL (0.02-0.10) Absolute Nucleated RBC 0.00 10^3/uL 10^3/uL (0-0.01) Immature Gran % 0.5 % % (0.0-1.1) Immature Gran # 0.09 10^3/uL 10^3/uL (0.00-0.10) PT INR APTT Sodium POC Potassium Potassium Chloride Carbon Dioxide Anion Gap BUN Creatinine Estimated GFR Glucose Calcium Phosphorus Medications Given: Discontinued Medications Hydromorphone HCl (Dilaudid) 0.5 mg IVP EDNOW ONE Stop: 06/09/18 10:42 Last Admin: 06/09/18 11:17 Dose: 0.5 mg Sodium Chloride (Ns) 1,000 mls @ 0 mls/hr IV EDNOW ONE; Wide Open PRN Reason: Protocol Stop: 06/09/18 10:43 Last Admin: 06/09/18 11:18 Dose: 1,000 mls Ketorolac Tromethamine (Toradol) 30 mg IVP EDNOW ONE Stop: 06/09/18 10:42 Last Admin: 06/09/18 11:16 Dose: 30 mg Ondansetron HCl (Zofran) 4 mg IVP EDNOW ONE Stop: 06/09/18 10:42 Last Admin: 06/09/18 11:19 Dose: 4 mg Point of Care Test Results: Chemistry 06/09/18 11:24 POC Potassium 3.6 mEq/L mEq/L (3.3-5.0) Departure - Departure Disposition: Home, Routine, Self-Care Clinical Impression: Left hip pain Contusion of left hip Qualifiers: Encounter type: initial encounter Qualified Code(s): S70.02XA - Contusion of left hip, initial encounter Condition: Good Instructions: How to Care for Your Suprapubic Catheter (ED), Hip Pain (ED), Hip Contusion (ED) Additional Instructions: 1. Rest and ice. 2. Follow up with an orthopedic surgeon within one week for unimproved symptoms. 3. Return to the emergency department for worsening pain, swelling, numbness, weakness or other concerns. Referrals: [facility],. [Clinic] - As per Instructions Report Scribed for: Riley Olson Report Scribed by: May Juarez Date of Report: 06/09/18 Time of Report: 10:34
[2018-06-09] MEDS ORDERED: HYDROmorphONE/DILAUDID 2 MG/ML INJ IVP ONE (10:41)
[2018-06-09] MEDS ORDERED: ONDANSETRON 4 MG/2 ML VIAL IVP ONE (10:41)
[2018-06-09] MEDS ORDERED: KETOROLAC 30 MG/1 ML SDV IVP ONE (10:41)
[2018-06-09] MEDS ORDERED: NS 1,000 ML IV ONE (10:42)
[2018-06-09 11:30] LABS: PLATELET COUNT 381 10^3/uL (150-400)
[2018-06-09 11:37] LABS: INR 1.01 (0.83-1.16); PROTIME(PATIENT) 12.9 SEC (12.0-15.0)
[2018-06-09 12:54] VITALS: BP 132/81
== END 2018-06-09 14:18 | disposition home or self-care (01) ==
LOC: EDUNIT#
DX: S70.02XA Contusion of left hip, initial encounter (principal); M51.36 Other intervertebral disc degeneration, lumbar region; M48.061 Spinal stenosis, lumbar region without neurogenic claudication; M70.42 Prepatellar bursitis, left knee; E86.9 Volume depletion, unspecified; W19.XXXA Unspecified fall, initial encounter
CPT/HCPCS: 72100; 72131; 72192; 73502; 96361; 96374; 96375; 99285; J1170; J1885; J2405; 84132-PO